=== PATIENT | male | born 1960 ===

== ENCOUNTER 2020-06-28 14:19 | Outpatient (REF) | payer BC, SELFPAY ==
--- NOTE | ~2020-06-28 | CT_ITS ---
EXAMINATION: CT CHEST, ABDOMEN AND PELVIS WITH CONTRAST. CLINICAL INFORMATION: Malignant neoplasm of bladder. COMPARISON: CT chest, abdomen and pelvis IV contrast 11/15/2018 TECHNIQUE: 5 mm thin axial and reformatted 3 mm thin sagittal coronal images of chest, abdomen and pelvis were obtained following IV 85 mL Omnipaque 350. DLP: 650 mGy-cm FINDINGS: CHEST: There are mild emphysematous changes of lungs without any acute pneumonic process. There are scattered pulmonary nodules right upper lobe and right lower lobe. The largest pulmonary nodule right upper lobe measures 5 mm on axial image 170/6, 3 mm nodule right upper lobe in the para midline region anteriorly on axial image 149/6, are stable. The heart size and the great vessels are normal caliber. There is no aortic dissection or aneurysm. There are coronary artery calcifications present. No pericardial effusion seen. The central trachea and bronchi are widely patent. The thyroid lobes are symmetrical and normal. A small hiatal hernia is noted. There is no pleural effusion, thickening or calcification. The axilla and the chest wall appears unremarkable. ABDOMEN AND PELVIS: The liver is diffusely attenuated without any focal lesion or intrahepatic ductal dilatation. There is a small punctate calculi in the gallbladder. No gallbladder wall thickening seen. Visualized spleen, pancreas and bilateral adrenal glands are unremarkable. There is a small 1.24 cm accessory splenule at the hilum. Both kidneys are normal size, shape and density. No radiopaque calculi or hydronephrosis seen. There is a small cortical defect along the posterior cortex midpole right kidney. There is a small 5 mm cyst midpole cortex left kidney. The abdominal aorta is atherosclerotic and calcified. No aneurysmal dilatation seen. No abnormal retroperitoneal lymph nodes or mass seen. There is scattered stool and gas seen throughout the colon without significant distention. The small bowel loops are normal caliber except for a segment of loop adjacent to the neobladder which appears prominent on axial image 79/3. Normal appendix Imaging through the pelvis reveals cystectomy with a neobladder reconstruction in the pelvis. There is no hydroureteronephrosis. There are no pelvic mass or abnormal pelvic lymph nodes. CT/CT abdomen pelvis w con IMPRESSION: 1. Emphysema with small pulmonary nodules, stable. 2. Small hiatal hernia. 3. Tiny gallstone, mild hypoattenuation of liver and bilateral renal cortical small cysts are stable. 4. Cystectomy changes with neobladder reconstruction without hydroureteronephrosis. 5. Mild prominence of small bowel loop adjacent to the neobladder, likely postsurgical. Recommend continued follow-up if patient has pain in this region.
== END 2020-06-28 14:20 | disposition home or self-care (01) ==
LOC: HO.CT 14:19
PROVIDERS: PCP Internal Medicine; Visit Provider Internal Medicine Hematology & Oncology
DX: C67.9 Malignant neoplasm of bladder, unspecified (principal)
CPT/HCPCS: 71260; 74177

== ENCOUNTER 2020-08-11 09:33 | Outpatient (REF) | payer BC, SELFPAY ==
[2020-08-11 10:37] LABS: MANUAL DIFF FLAG NO
[2020-08-11 10:59] LABS: Basophils Percent Auto 0.4 % (0-2); Eosinophils Absolute Auto 0.2 X10*3/uL (0.0-0.4); Eosinophils Percent Auto 2.5 % (0-4); Hematocrit 45.8 % (42-52); Hemoglobin 14.7 g/dl (14.0-18.0); Imm Gran Abs Auto 0.03 X10*3/uL (0.00-0.03); Imm Gran Pct Auto 0.4 % (0.0-0.4); Lymphocytes Absolute Auto 1.8 X10*3/uL (1.2-4.9); Lymphocytes Percent Auto 23.4 % (20-40); Mean Corpuscular HGB Conc 32.1 g/dl (31.0-36.0); Mean Corpuscular Hemoglobin 27.6 pg (27.0-33.0); Mean Corpuscular Volume 86.1 fL (80-98); Monocytes Absolute Auto 0.6 X10*3/uL (0.1-1.2); Monocytes Percent Auto 8.4 % (2-11); Neutrophils Absolute Auto 4.9 X10*3/uL (2.0-8.3); Neutrophils Percent Auto 64.9 % (45-73); Platelet Count 225 X10*3/uL (160-400); Red Blood Count 5.32 X10*6/uL (4.60-5.80); White Blood Count 7.5 X10*3/uL (4.8-10.8)
[2020-08-11 11:06] LABS: Alanine Aminotransferase 85 U/L (0-40); Albumin Level 4.8 g/dL (3.5-5.0); Alkaline Phosphatase 109 U/L (39-117); Anion Gap 14 (12-20); Aspartate Amino Transferase 56 U/L (5-37); Bilirubin Total 0.7 mg/dL (0.0-1.0); Blood Urea Nitrogen 13 mg/dL (9-16); Calcium 9.8 mg/dL (8.4-10.2); Carbon Dioxide 25 mmol/L (22-29); Chloride 106 mmol/L (96-108); Cholesterol 207 mg/dL; Estimated Glomerular Filt Rate > 60; Glucose Random 121 mg/dL (60-115); HDL Cholesterol 47 mg/dL; LDL Cholesterol Calculated 144 mg/dl; Potassium 4.6 mmol/L (3.3-5.1); Sodium 140 mmol/L (135-145); Total Protein 7.6 g/dL (6.5-8.0); Triglycerides 82 mg/dL
[2020-08-11 11:31] LABS: Free T4 (Free Thyroxine) 0.99 ng/dL (0.71-1.85); Prostate Specific Antigen Scr < 0.05 ng/mL (<0.05-4.0)
[2020-08-11 11:50] LABS: Folate 10.2 ng/mL (> or = 4.0); Vitamin B12 441 pg/mL (200-900)
== END 2020-08-11 09:34 | disposition home or self-care (01) ==
LOC: HO.LAB 09:33
PROVIDERS: PCP Internal Medicine; Visit Provider Internal Medicine
DX: Z12.5 Encounter for screening for malignant neoplasm of prostate (principal); E78.00 Pure hypercholesterolemia, unspecified; C67.9 Malignant neoplasm of bladder, unspecified; R73.02 Impaired glucose tolerance (oral)
CPT/HCPCS: 36415; 80053; 80061; 82607; 82746; 84153; 84439; 84443; 85025

== ENCOUNTER 2021-05-23 09:24 | Outpatient (REF) | payer BC, SELFPAY ==
--- NOTE | ~2021-05-23 | CT_ITS ---
EXAMINATION: CT ABDOMEN AND PELVIS WITH CONTRAST CLINICAL INFORMATION: Bladder cancer. COMPARISON: Previous CT most recent June 2020 TECHNIQUE: Multidetector volumetric images were obtained from the superior aspect of the liver through the pubic symphysis following administration 85 mL of Omnipaque 350 intravenous contrast. Sagittal and coronal reformatted images were obtained on the technologist's workstation. Oral contrast: Yes. This CT examination was performed using dose optimization techniques as appropriate, variously including the following: *Automated exposure control *Adjustment of mA and/or kV according to patient size (this includes techniques or standardized protocols for targeted exams where dose is matched to indication/reason for exam; i.e. extremities or head) *Use of iterative reconstruction technique DLP: 479 mGy-cm FINDINGS: LUNG BASES: The visualized lung bases are unremarkable. LIVER, GALLBLADDER, AND BILIARY TREE: The liver is low in attenuation suggestive of fatty infiltration. No focal liver lesion is seen. The gallbladder is contracted. There is a gallstone. There is no intrahepatic or extrahepatic biliary duct dilatation. PANCREAS: Unremarkable. SPLEEN: Unremarkable. ADRENAL GLANDS: Unremarkable. KIDNEYS AND URETERS: There is mild fullness of the right renal collecting system. There is mild fullness of the right ureter. There is air seen in the right ureter and a small amount of air in the right collecting system. This is a new finding from June 2020 exam. There is a small 5 mm low-attenuation lesion in the upper pole of the right kidney probably representing a cyst. There is a small amount of air in the left renal collecting system. There is no left hydronephrosis. There is fullness of the left ureter. No air in the left ureter is seen. There are small 5 mm low-attenuation lesions in the upper and lower pole of the left kidney probably representing small cysts. BLADDER: There is a neobladder. This is irregularly shaped. This contains fluid and air. Air is new from previous CT June 2020. There is also new high attenuation seen in the anterior neobladder, for example axial image 87-89 series 3. This appears unchanged. GASTROINTESTINAL TRACT: There is diverticulosis of the colon. There are postsurgical changes to the small bowel in the right lower quadrant. The small and large bowel is otherwise unremarkable. The appendix is unremarkable. The stomach is unremarkable. ABDOMINAL WALL: There is a small umbilical hernia containing fat. LYMPH NODES: Normal. VASCULAR: There is evidence of atherosclerotic disease. PELVIC VISCERA: The prostate gland appears to have been removed. OSSEOUS STRUCTURES: Unremarkable. CT/CT abdomen pelvis w con IMPRESSION: There is new air seen in the neobladder and right ureter and a small amount of air in both collecting systems. This may be related to recent instrumentation. Clinical correlation is recommended to exclude infection and fistula. Small high attenuation in the anterior neobladder that appears unchanged from previous June 2020 exam. Mild fullness of the right renal collecting system and ureter. Mild fullness of the left ureter. Stable small low-attenuation bilateral renal lesions probably representing cysts. Fatty liver. Mild diverticulosis of the colon. Fleischner guidelines were followed.
--- NOTE | ~2021-05-23 | CT_ITS ---
EXAMINATION: CT CHEST WITH CONTRAST CLINICAL INFORMATION: Bladder cancer. COMPARISON: Previous chest CT most recent June 2020. TECHNIQUE: Multidetector volumetric CT imaging of the chest was obtained after the administration of 85 mL of Omnipaque 350 intravenous contrast without immediate adverse reactions. Axial MIP volume rendering provided. Sagittal and coronal reformatted images were obtained. This CT examination was performed using dose optimization techniques as appropriate, variously including the following: *Automated exposure control *Adjustment of mA and/or kV according to patient size (this includes techniques or standardized protocols for targeted exams where dose is matched to indication/reason for exam; i.e. extremities or head) *Use of iterative reconstruction technique DLP: 150 mGy-cm FINDINGS: LUNGS: The small bilateral pulmonary nodules are stable. Largest pulmonary nodule measures 3 x 5 mm in the right upper lobe axial image 166 series 7. No new pulmonary nodules are seen. There are mild emphysematous changes. MEDIASTINUM: The heart does not appear enlarged. There is mild coronary artery and aortic valve calcification. There is no pericardial effusion. There are no enlarged hilar or mediastinal lymph nodes. The thoracic aorta is normal in caliber. PLEURA: There is no pleural effusion. No pleural mass or thickening. AXILLA: No lymphadenopathy. UPPER ABDOMEN: Fatty liver. Gallstone. OSSEOUS STRUCTURES: There are degenerative changes of the spine. CT/CT chest w con IMPRESSION: Stable small pulmonary nodules. Emphysema. Fleischner guidelines were followed.
[2021-05-23] MEDS: iohexoL 350 MG/ML 100 ML INFUS..BTL IV (10:23)
== END 2021-05-23 09:25 | disposition home or self-care (01) ==
LOC: HO.CT 09:24
PROVIDERS: PCP Internal Medicine; Visit Provider Internal Medicine Hematology & Oncology
DX: C67.9 Malignant neoplasm of bladder, unspecified (principal)
CPT/HCPCS: 71260; 74177; Q9967

== ENCOUNTER → 2021-06-30 13:36 | Outpatient (REF) | payer BC, SELFPAY ==
--- NOTE | 2021-06-30 13:41 | CA_ITS ---
Transthoracic Echocardiogram Patient (Last, First, Middle): Josh Herron J Gender: Male Date of : 1960 Age: 61 Procedure Date: 06/30/2021 Procedure Type: Transthoracic Echocardiogram Location: OP Height: 177.8 cm Weight: 95.26 kg BSA: 2.13 m2 Heart Rate: bpm BP: 126 / 84 mmHg Director Of Analytics: JESSICA Referring MD: Seamus Gibbons MD Special Education Teachers: Leeroy Yost MD Symptoms: I35.0 - Nonrheumatic aortic (valve) stenosis Study Quality: Fair ECG Rhythm: Sinus Conclusions: - 1. Normal LV systolic function with mild LVH with grade 1 diastolic dysfunction 2. Mild aortic stenosis 3. Normal RV systolic pressure 4. No pericardial effusion Findings Left Ventricle Normal left ventricular size and systolic function. There is mildly increased left ventricular wall thickness. The visually estimated ejection fraction is between 60-65%. Spectral Doppler is indicative of an impaired relaxation filling pattern. E/E prime ratio is <8, consistent with normal filling pressures. Evidence suggests grade I (mild) diastolic dysfunction. Right Ventricle Normal right ventricular cavity size and systolic function. Atria The left atrium is likely dilated. Interatrial shunt cannot be excluded. The right atrium is normal in size. Aortic Valve There is mild calcification of the aortic valve. There is mild thickening of the aortic valve. There is mild aortic valve stenosis. The mean gradient is 13 mmHg. The aortic valve area is 1.86 cm2. There is no aortic valve regurgitation. Mitral Valve There is mild anterior and posterior mitral leaflet thickening. There is trace mitral valve regurgitation. There is no mitral valve stenosis. Pulmonic Valve The pulmonic valve was not well visualized. Tricuspid Valve Likely normal tricuspid valve structure and function. There is trace tricuspid valve regurgitation. The right ventricular systolic pressure is normal. The right ventricular systolic pressure is 17 mmHg. Normal right atrial pressure. There is no evidence of pulmonary hypertension. Great Vessels All visible segments of the aorta are normal in size. The pulmonary artery was not well visualized. Venous The inferior vena cava is normal in size and collapses greater than 50% with inspiration. Pericardium/Pleural There is no evidence of pericardial effusion. Prior Study Comparison No significant change compared to prior study dated: 02/12/2019. Measurements 2D Linear Measurements IVSd: 1.18 0.6-0.9/0.6-1.0 cm LVIDd: 4.51 3.9-5.3/4.2-5.9 cm LVIDd Index: 2.12 2.4-3.2/2.2-3.1 cm/m2 LVIDs: 2.82 2.0-3.6 cm LVPWd: 1.24 0.7-1.1 cm LA Diam: 3.90 2.7-3.8/3.0-4.0 cm LAIDs Index: 1.83 1.5-2.3 cm/m2 LV Mass: 250.72 67-162/88-224 g LV Mass Index: 117.71 43-95/49-115 g/m2 LVOT Diam: 2.20 3.0+(-)1.3 cm 2D Systolic Function EF 4C: 63.40 >55% EF 2C: 66.40 >55% EF BiP: 64.90 >55% Mitral Valve MV Pk E: 0.62 MV PK A: 1.06 MV Decel Time: 200.00 E/A: 0.60 E'Lateral: 12.60 E'Medial: 10.10 E/E' Med: 6.10 E/E' Lat: 4.90 PHT: 57.00 MVA PHT: 3.86 Decel [place]: 3.35 Aortic Valve AoV Pk Chip: 2.41 AoV Mn Chip: 1.73 AoV VTI: 0.36 AoV Pk Grad: 23.00 Aov Mn Grad: 13.00 GRAYSON Cont.VTI: 1.86 LVOT LVOT Pk Chip: 1.11 LVOT Mn Chip: 0.77 LVOT VTI: 0.18 LVOT Pk Grad: 5.00 LVOT Mn Grad: 3.00 LVOT Diam: 2.20 LVOT Area: 3.80 Diastolic Function MV Pk E: 0.62 MV Pk A: 1.06 E/A: 0.60 E'Medial: 10.10 E/E' Med: 6.10 E' Laterial: 12.60 E/E' Lat: 4.90 Right Ventricle TAPSE (mm): 21.40 TVS' Chip: 16.50 Tricuspid Valve TR Pk Chip: 1.87 TR Pk Grad: 14.00 RA Press: 3.00 RVSP: 17.00 Great Vessels Aorta Sinus of Valsalva: 3.82 2.0-3.[address] [place]: 3.07 1.7-3.4 cm Ao Asc: 3.80 2.1-3.4 cm Ao Arch: 3.00 Updated in Other Vendor System with Status of Final Leeroy Yost MD electronically signed on 06/30/2021 4:55:51 PM with status of Final
== END ==
LOC: HO.CARD 13:36
PROVIDERS: PCP Internal Medicine; Visit Provider Internal Medicine
DX: I35.0 Nonrheumatic aortic (valve) stenosis (principal)
CPT/HCPCS: 93306

== ENCOUNTER 2021-07-07 09:34 | Observation (INO) | payer BC, SELFPAY ==
--- NOTE | ~2021-07-07 | CT_ITS ---
EXAMINATION: CT ANGIOGRAM NECK WITH CONTRAST CT ANGIOGRAM BRAIN WITH CONTRAST CLINICAL INFORMATION: Sudden onset dizziness. COMPARISON: None. TECHNIQUE: Test bolus sequences followed by intravenous administration 70 mL of Omnipaque 350. Helical imaging was performed in the axial plane from the thoracic inlet to the skull vertex. Delayed postcontrast imaging of the head was also performed. The data was processed at the surgical scrub technologist workstation for generation of MIP sequences. Angled MIPs and volume rendered reformatted images were also generated at an offline 3D workstation. Stenoses are assessed in accordance with NASCET criteria unless otherwise indicated. This CT examination was performed using dose optimization techniques as appropriate, variously including the following: *Automated exposure control *Adjustment of mA and/or kV according to patient size (this includes techniques or standardized protocols for targeted exams where dose is matched to indication/reason for exam; i.e. extremities or head) *Use of iterative reconstruction technique DLP: 2511 mGy-cm FINDINGS: Head CT: Moderate patchy hypoattenuation is seen throughout the cerebral white matter compatible with chronic microangiopathy. No intracranial hemorrhage, extra-axial collection, or territorial infarction is seen. The ventricles are normal in size without hydrocephalus. The extracranial structures are unremarkable. The dural venous sinuses are normally opacified. Neck CTA: The aortic arch and great vessel origins are patent. The common carotid arteries are patent. Mild atheromatous changes are seen at the carotid bifurcations without significant stenosis. The cervical internal carotid arteries are widely patent. Both vertebral arteries are patent. Head CTA: No proximal vessel occlusion is seen. The anterior and posterior circulations are patent. No significant stenosis is seen. Non-vascular findings: Significant emphysema is seen within the upper lungs. The cervical soft tissues are within normal limits. Degenerative changes are seen within the spine. Multilevel neural foraminal stenosis is demonstrated and is high-grade across multiple levels. CT/CT head/brain wo con IMPRESSION: CT head: No intracranial hemorrhage or large acute infarction. Moderate to severe hypoattenuation throughout the cerebral white matter presumably on the basis of chronic microangiopathy but could be further evaluated with MRI. CTA neck: No hemodynamically significant stenosis in the major arteries of the neck. CTA head: No large vessel occlusion or significant stenosis within the intracranial circulation. Additional findings: Significant emphysema noted in the lungs. This critical result was discussed with Dr. Brooks on 07/07/2021 11:45 AM, and it was ascertained that the content and urgency of the report was understood at the time of direct communication.
--- NOTE | ~2021-07-07 | MR_ITS ---
EXAMINATION: MR BRAIN WITHOUT CONTRAST CLINICAL INFORMATION: Rule out posterior stroke. COMPARISON: Head CTA 07/07/2021. TECHNIQUE: Multiplanar, multisequence imaging of the brain was performed without intravenous contrast. FINDINGS: There is no acute infarction, hemorrhage, mass, or extra-axial fluid collection. The ventricles and sulci are commensurate. Moderate to severe patchy and partly confluent T2/FLAIR hyperintensity seen throughout the cerebral white matter. No signal abnormalities seen within the corpus callosum or posterior fossa structures The major arterial flow voids are preserved at the skull base. The orbital contents appear normal. The extracranial structures are within normal limits. MR/MR head/brain wo con IMPRESSION: No acute intracranial abnormality identified. Specifically no evidence of infarction, hemorrhage, or mass. Extensive T2/FLAIR hyperintensity is seen throughout the cerebral white matter which is nonspecific but may reflect sequela of significant chronic microangiopathy. Demyelinating processes is an additional consideration but felt less likely.
--- NOTE | ~2021-07-07 | CT_ITS ---
EXAMINATION: CT ANGIOGRAM NECK WITH CONTRAST CT ANGIOGRAM BRAIN WITH CONTRAST CLINICAL INFORMATION: Sudden onset dizziness. COMPARISON: None. TECHNIQUE: Test bolus sequences followed by intravenous administration 70 mL of Omnipaque 350. Helical imaging was performed in the axial plane from the thoracic inlet to the skull vertex. Delayed postcontrast imaging of the head was also performed. The data was processed at the genetic technologist workstation for generation of MIP sequences. Angled MIPs and volume rendered reformatted images were also generated at an offline 3D workstation. Stenoses are assessed in accordance with NASCET criteria unless otherwise indicated. This CT examination was performed using dose optimization techniques as appropriate, variously including the following: *Automated exposure control *Adjustment of mA and/or kV according to patient size (this includes techniques or standardized protocols for targeted exams where dose is matched to indication/reason for exam; i.e. extremities or head) *Use of iterative reconstruction technique DLP: 2511 mGy-cm FINDINGS: Head CT: Moderate patchy hypoattenuation is seen throughout the cerebral white matter compatible with chronic microangiopathy. No intracranial hemorrhage, extra-axial collection, or territorial infarction is seen. The ventricles are normal in size without hydrocephalus. The extracranial structures are unremarkable. The dural venous sinuses are normally opacified. Neck CTA: The aortic arch and great vessel origins are patent. The common carotid arteries are patent. Mild atheromatous changes are seen at the carotid bifurcations without significant stenosis. The cervical internal carotid arteries are widely patent. Both vertebral arteries are patent. Head CTA: No proximal vessel occlusion is seen. The anterior and posterior circulations are patent. No significant stenosis is seen. Non-vascular findings: Significant emphysema is seen within the upper lungs. The cervical soft tissues are within normal limits. Degenerative changes are seen within the spine. Multilevel neural foraminal stenosis is demonstrated and is high-grade across multiple levels. CT/CT angio head neck IMPRESSION: CT head: No intracranial hemorrhage or large acute infarction. Moderate to severe hypoattenuation throughout the cerebral white matter presumably on the basis of chronic microangiopathy but could be further evaluated with MRI. CTA neck: No hemodynamically significant stenosis in the major arteries of the neck. CTA head: No large vessel occlusion or significant stenosis within the intracranial circulation. Additional findings: Significant emphysema noted in the lungs. This critical result was discussed with Dr. Brooks on 07/07/2021 11:45 AM, and it was ascertained that the content and urgency of the report was understood at the time of direct communication.
--- NOTE | ~2021-07-07 | XR_ITS ---
EXAMINATION: XR CHEST CLINICAL INFORMATION: CO2 poisoning. Low suspicion of pulmonary edema. COMPARISON: CT chest 05/23/2021 TECHNIQUE: Frontal view of the chest was obtained. FINDINGS: The lungs are hypoexpanded and clear of acute pneumonic process. The heart size is borderline enlarged. Pulmonary vascularity is normal. No gross bony abnormality seen. XR/XR chest 1V IMPRESSION: Hypoexpanded lungs without acute process.
[2021-07-07 09:39] VITALS: BP 170/101; PULSE 73; RESP 19; TEMP 36.6; O2SAT 100; BMI 30.9
--- NOTE | 2021-07-07 09:43 | ECG_ITS ---
Test Reason : Dizziness Blood Pressure : / mmHG Vent. Rate : 071 BPM Atrial Rate : 071 BPM P-R Int : 182 ms QRS Dur : 132 ms QT Int : 434 ms P-R-T Axes : 030 -38 -12 degrees QTc Int : 471 ms Normal sinus rhythm Possible Left atrial enlargement Left axis deviation Right bundle branch block Abnormal ECG No previous ECGs available Referred By: Belinda Brooks Electronically Signed By:MAGDALENA ROGEL
--- NOTE | 2021-07-07 09:45 | ED.GENADULT ---
HPI - General Adult General Chief complaint: Dizziness Stated complaint: ? CARBON MONOXIDE POISONING FROM A RUNNING CAR Time Seen by Provider: 07/07/21 09:39 Source: patient and EMS Mode of arrival: EMS Limitations: no limitations History of Present Illness HPI narrative: Patient comes to the emergency room complaining of dizziness and vomiting. Earlier today, patient was sitting in his parked car with the engine running for 1-1/2 hours. Patient states that he was waiting for his brother, denies SI or HI. When patient got home, he started feeling dizzy (room spinning) and having nausea. Patient denies shortness of breath, no headache, no chest pain Related Data Previous Rx's Medication Instructions Recorded cholecalciferol (vitamin D3) 25 25 mcg PO DAILY 90 Days #90 cap 08/13/20 mcg (1,000 unit) capsule atorvastatin 20 mg tablet 20 mg PO DAILY #90 tab 12/07/20 omeprazole 20 mg capsule,delayed 20 mg PO BID 90 Days #180 cap 05/31/21 release Allergies Allergy/AdvReac Type Severity Reaction Status Date / Time No Known Allergies Allergy Verified 03/07/21 11:22 [No Known Allergies*] Review of Systems Review of Systems: Constitutional : No Weight loss, No Fever, No Chills, No Night Sweats, No Fatigue, No Malaise ENT/Mouth : No Hearing loss, No Ear Pain, No Nasal Congestion, No Sinus Pain, No Hoarseness, No sore throat, No Rhinorrhea, No Swallowing Difficulty Eyes: No Eye Pain, No Swelling, No Redness, No Foreign Body, No Discharge, No Vision Changes Cardiovascular : No Chest Pain, No SOB, No Dyspnea on Exertion, No Orthopnea, No Edema, No Palpitations Respiratory : No Cough, No Sputum, No Wheezing, No Smoke Exposure, No Dyspnea Gastrointestinal : Complaining of sudden onset of nausea and vomiting No Diarrhea, No Constipation, No abdominal Pain, No Hematochezia, No Melena Genitourinary : no irregular bleeding, No Dysuria, No Urinary Frequency, No Hematuria, No Urinary Incontinence, No Urgency, No Flank Pain, No Urinary Flow Changes, No Hesitancy Musculoskeletal : No joint pain, No Myalgias, No Joint Swelling Skin : No Skin Lesions, No rash Neuro : No Weakness, No Numbness, No Paresthesias, No Loss of Consciousness, N complaining of Dizziness, No Headache Psych : No Anxiety/Panic, No Depression, No SI/HI/AH/VH, No Social Issues, Heme/Lymph: No Bruising, No Bleeding,No Lymphadenopathy Endocrine : No Polyuria, No Polydipsia, No Temperature Intolerance [facility] Past Medical History Medical History (Updated 07/07/21 @ 14:10 by Belinda Brooks MD) Bladder cancer GERD (gastroesophageal reflux disease) Hyperlipidemia Impaired glucose tolerance PHIPPS (nonalcoholic steatohepatitis) Obesity (BMI 30-39.9) Pulmonary nodule Surgical History H/O total cystectomy History of cystoscopy History of shoulder surgery Family History Family History (Updated 02/06/20 @ 12:34 by Ary Koehler [facility]) Father Diabetes Lung cancer CAD (coronary artery disease) Mother Lung cancer Social History Social History (Updated 02/09/20 @ 18:09 by Seamus Gibbons MD) Housing: House Alcohol intake: never Patient Tobacco Use Status: Former Tobacco user Tobacco use type: Cigarette Years Smoked: 30 years ago(02/2020) e-Cigarette/Vaping Use: Never Used Second Hand Smoke Exposure: No Advance Directives: No Current occupational status: retired Physical Exam ED Vital Signs: Vital Signs - 24 hr 07/07/21 09:39 07/07/21 10:00 07/07/21 10:54 Temperature 98 F Pulse Rate 73 76 78 Respiratory Rate 19 16 19 Blood Pressure 170/101 H Pulse Oximetry 100 100 91 L 07/07/21 13:53 07/07/21 13:56 Temperature Pulse Rate 88 Respiratory Rate 13 Blood Pressure 155/94 H Pulse Oximetry 92 91 L BMI result Body Mass Index 30.9 Course Course Course Narrative: When patient arrived, we started 15 L on a non-rebreather. When me received the carboxyhemoglobin results which were negative, we turned off the oxygen. Patient overall feeling better. However, patient states that every time he moves his head, the dizziness gets worse. Patient able to clarify that the dizziness means the room spinning. Patient was given meclizine and oral Valium Patient states that he feels much better after the meclizine and the Valium. We attempted several times to stand up the patient and walk with him. Patient became very dizzy, patient became very nauseous, pale diaphoretic. Patient recuperated after we sat him down for a few minutes. Patient likely has BPPV, I discussed the patient with Dr. Molina, since patient's symptoms are intermittent, worse with movement, unlikely to be stroke, but we will go ahead and order an MRI. Head CT and CTA do not show any acute pathology Of note, patient has not been diagnosed with COPD. However, on CT scan there was significant emphysema noted in the lungs. Patient will likely need pulmonary functions test likely in an outpatient setting Medical Decision Making Lab Data Result diagrams: 07/07/21 09:53 07/07/21 09:53 Labs: Lab Results 07/07/21 07/07/21 07/07/21 Range/Units 09:53 09:53 09:53 WBC 7.5 (4.8-10.8) X10*3/uL RBC 5.11 (4.60-5.80) X10*6/uL Hgb 14.0 (14.0-18.0) g/dl Hct 43.5 (42.0-52.0) % MCV 85.1 (80.0-98.0) fL MCH 27.4 (27.0-33.0) pg MCHC 32.2 (31.0-36.0) g/dl RDW 11.9 (11.0-16.0) % Plt Count 175 (160-400) X10*3/uL MPV 10.4 (9.4-12.4) fL Immature Gran % (Auto) 0.5 H (0.0-0.4) % Neut % (Auto) 66.3 (45-73) % Lymph % (Auto) 21.9 (20-40) % Centre % (Auto) 8.6 (2-11) % Eos % (Auto) 2.3 (0-4) % Baso % (Auto) 0.4 (0-2) % Lymph # (Auto) 1.7 (1.2-4.9) X10*3/uL [place] # (Auto) 0.7 (0.1-1.2) X10*3/uL Eos # (Auto) 0.2 (0.0-0.4) X10*3/uL Baso # (Auto) 0.0 (0.0-0.2) X10*3/uL Abs Immat Gran (auto) 0.04 H (0.00-0.03) X10*3/uL Absolute Neuts (auto) 5.0 (2.0-8.3) x10*3/uL Absolute Nucleated RBC 0.000 (0.0-0.012) X10*3/uL Nucleated RBC % (auto) 0.0 (0.0-0.2) /100WBC D-Dimer High Sensitivty NG/ML Carboxyhemoglobin % % Sodium 139 (135-145) mmol/L Potassium 4.5 (3.3-5.1) mmol/L Chloride 107 (96-108) mmol/L Carbon Dioxide 21 L (22-29) mmol/L Anion Gap 16 (12-20) BUN 16 (9-16) mg/dL Creatinine 0.86 (0.5-1.4) mg/dL Estim Creat Clear Calc 103.2 Estimated GFR > 60 Random Glucose 127 H (60-115) mg/dL Lactic Acid (0.5-2.0) mmol/L Calcium 9.6 (8.4-10.2) mg/dL Magnesium 2.1 (1.6-2.6) mg/dL Total Bilirubin 0.4 (0.0-1.0) mg/dL Direct Bilirubin < 0.2 (0.0-0.5) mg/dL AST 36 (5-37) U/L ALT 52 H (0-40) U/L Alkaline Phosphatase 97 (39-117) U/L Troponin I High Sens 6.9 (<3.5-35.0) ng/L Total Protein 7.6 (6.5-8.0) g/dL Albumin 4.6 (3.5-5.0) g/dL Urine Color Urine Appearance Urine pH (5.0-8.0) Ur Specific [place] (1.005-1.025) Urine Protein (NEG-TRACE) MG/DL Urine Glucose (UA) (NEG) MG/DL Urine Ketones (NEG) MG/DL Urine Blood (NEG) Urine Nitrite (NEG) Ur Leukocyte Esterase (NEG) Urine RBC (0) /HPF Urine WBC (0-4) /HPF Ur Squamous Epith Cells /LPF Ur Renal Epithelial Cell /LPF Urine Bacteria /LPF Urine Opiates Screen (Not Detect) Urine Fentanyl Screen (Not Detect) Ur Barbiturates Screen (Not Detect) Ur Phencyclidine Scrn (Not Detect) Ur Amphetamines Screen (Not Detect) U Benzodiazepines Scrn (Not Detect) Urine Cocaine Screen (Not Detect) U Marijuana (THC) Screen (Not Detect) Ethyl Alcohol mg/dL 07/07/21 07/07/21 07/07/21 Range/Units 09:53 09:56 12:44 WBC (4.8-10.8) X10*3/uL RBC (4.60-5.80) X10*6/uL Hgb (14.0-18.0) g/dl Hct (42.0-52.0) % MCV (80.0-98.0) fL MCH (27.0-33.0) pg MCHC (31.0-36.0) g/dl RDW (11.0-16.0) % Plt Count (160-400) X10*3/uL MPV (9.4-12.4) fL Immature Gran % (Auto) (0.0-0.4) % Neut % (Auto) (45-73) % Lymph % (Auto) (20-40) % Centre % (Auto) (2-11) % Eos % (Auto) (0-4) % Baso % (Auto) (0-2) % Lymph # (Auto) (1.2-4.9) X10*3/uL [place] # (Auto) (0.1-1.2) X10*3/uL Eos # (Auto) (0.0-0.4) X10*3/uL Baso # (Auto) (0.0-0.2) X10*3/uL Abs Immat Gran (auto) (0.00-0.03) X10*3/uL Absolute Neuts (auto) (2.0-8.3) x10*3/uL Absolute Nucleated RBC (0.0-0.012) X10*3/uL Nucleated RBC % (auto) (0.0-0.2) /100WBC D-Dimer High Sensitivty NG/ML Carboxyhemoglobin % 0.4 % Sodium (135-145) mmol/L Potassium (3.3-5.1) mmol/L Chloride (96-108) mmol/L Carbon Dioxide (22-29) mmol/L Anion Gap (12-20) BUN (9-16) mg/dL Creatinine (0.5-1.4) mg/dL Estim Creat Clear Calc Estimated GFR Random Glucose (60-115) mg/dL Lactic Acid 1.4 (0.5-2.0) mmol/L Calcium (8.4-10.2) mg/dL Magnesium (1.6-2.6) mg/dL Total Bilirubin (0.0-1.0) mg/dL Direct Bilirubin (0.0-0.5) mg/dL AST (5-37) U/L ALT (0-40) U/L Alkaline Phosphatase (39-117) U/L Troponin I High Sens (<3.5-35.0) ng/L Total Protein (6.5-8.0) g/dL Albumin (3.5-5.0) g/dL Urine Color Urine Appearance Urine pH (5.0-8.0) Ur Specific [place] (1.005-1.025) Urine Protein (NEG-TRACE) MG/DL Urine Glucose (UA) (NEG) MG/DL Urine Ketones (NEG) MG/DL Urine Blood (NEG) Urine Nitrite (NEG) Ur Leukocyte Esterase (NEG) Urine RBC (0) /HPF Urine WBC (0-4) /HPF Ur Squamous Epith Cells /LPF Ur Renal Epithelial Cell /LPF Urine Bacteria /LPF Urine Opiates Screen (Not Detect) Urine Fentanyl Screen (Not Detect) Ur Barbiturates Screen (Not Detect) Ur Phencyclidine Scrn (Not Detect) Ur Amphetamines Screen (Not Detect) U Benzodiazepines Scrn (Not Detect) Urine Cocaine Screen (Not Detect) U Marijuana (THC) Screen (Not Detect) Ethyl Alcohol < 10 mg/dL 07/07/21 07/07/21 07/07/21 Range/Units 12:44 12:44 12:44 WBC (4.8-10.8) X10*3/uL RBC (4.60-5.80) X10*6/uL Hgb (14.0-18.0) g/dl Hct (42.0-52.0) % MCV (80.0-98.0) fL MCH (27.0-33.0) pg MCHC (31.0-36.0) g/dl RDW (11.0-16.0) % Plt Count (160-400) X10*3/uL MPV (9.4-12.4) fL Immature Gran % (Auto) (0.0-0.4) % Neut % (Auto) (45-73) % Lymph % (Auto) (20-40) % Centre % (Auto) (2-11) % Eos % (Auto) (0-4) % Baso % (Auto) (0-2) % Lymph # (Auto) (1.2-4.9) X10*3/uL [place] # (Auto) (0.1-1.2) X10*3/uL Eos # (Auto) (0.0-0.4) X10*3/uL Baso # (Auto) (0.0-0.2) X10*3/uL Abs Immat Gran (auto) (0.00-0.03) X10*3/uL Absolute Neuts (auto) (2.0-8.3) x10*3/uL Absolute Nucleated RBC (0.0-0.012) X10*3/uL Nucleated RBC % (auto) (0.0-0.2) /100WBC D-Dimer High Sensitivty 151 NG/ML Carboxyhemoglobin % % Sodium (135-145) mmol/L Potassium (3.3-5.1) mmol/L Chloride (96-108) mmol/L Carbon Dioxide (22-29) mmol/L Anion Gap (12-20) BUN (9-16) mg/dL Creatinine (0.5-1.4) mg/dL Estim Creat Clear Calc Estimated GFR Random Glucose (60-115) mg/dL Lactic Acid (0.5-2.0) mmol/L Calcium (8.4-10.2) mg/dL Magnesium (1.6-2.6) mg/dL Total Bilirubin (0.0-1.0) mg/dL Direct Bilirubin (0.0-0.5) mg/dL AST (5-37) U/L ALT (0-40) U/L Alkaline Phosphatase (39-117) U/L Troponin I High Sens (<3.5-35.0) ng/L Total Protein (6.5-8.0) g/dL Albumin (3.5-5.0) g/dL Urine Color YELLOW Urine Appearance HAZY Urine pH 7.0 (5.0-8.0) Ur Specific [place] <= 1.005 (1.005-1.025) Urine Protein NEG (NEG-TRACE) MG/DL Urine Glucose (UA) NEG (NEG) MG/DL Urine Ketones NEG (NEG) MG/DL Urine Blood TRACE (NEG) Urine Nitrite NEG (NEG) Ur Leukocyte Esterase NEG (NEG) Urine RBC 0 (0) /HPF Urine WBC 5-9 H (0-4) /HPF Ur Squamous Epith Cells NONE /LPF Ur Renal Epithelial Cell 3+ /LPF Urine Bacteria NONE /LPF Urine Opiates Screen Not Detected (Not Detect) Urine Fentanyl Screen Not Detected (Not Detect) Ur Barbiturates Screen Not Detected (Not Detect) Ur Phencyclidine Scrn Not Detected (Not Detect) Ur Amphetamines Screen Not Detected (Not Detect) U Benzodiazepines Scrn Not Detected (Not Detect) Urine Cocaine Screen Not Detected (Not Detect) U Marijuana (THC) Screen Not Detected (Not Detect) Ethyl Alcohol mg/dL Imaging Data Head CT and CTA of head and neck: Radiologist's impression: FINDINGS: Head CT: Moderate patchy hypoattenuation is seen throughout the cerebral white matter compatible with chronic microangiopathy. No intracranial hemorrhage, extra-axial collection, or territorial infarction is seen. The ventricles are normal in size without hydrocephalus. The extracranial structures are unremarkable. The dural venous sinuses are normally opacified. Neck CTA: The aortic arch and great vessel origins are patent. The common carotid arteries are patent. Mild atheromatous changes are seen at the carotid bifurcations without significant stenosis. The cervical internal carotid arteries are widely patent. Both vertebral arteries are patent. Head CTA: No proximal vessel occlusion is seen. The anterior and posterior circulations are patent. No significant stenosis is seen. Non-vascular findings: Significant emphysema is seen within the upper lungs. The cervical soft tissues are within normal limits. Degenerative changes are seen within the spine. Multilevel neural foraminal stenosis is demonstrated and is high-grade across multiple levels. CT/CT angio head neck IMPRESSION: CT head: No intracranial hemorrhage or large acute infarction. Moderate to severe hypoattenuation throughout the cerebral white matter presumably on the basis of chronic microangiopathy but could be further evaluated with MRI. ? CTA neck: No hemodynamically significant stenosis in the major arteries of the neck. ? CTA head: No large vessel occlusion or significant stenosis within the intracranial circulation. ? Additional findings: Significant emphysema noted in the lungs. Discharge Plan Discharge Clinical Impression: Benign paroxysmal positional vertigo Patient Disposition: Admitted As Inpatient Prescriptions: No Action cholecalciferol (vitamin D3) 25 mcg (1,000 unit) capsule 25 mcg PO DAILY 90 Days Qty: 90 3RF atorvastatin 20 mg tablet 20 mg PO DAILY Qty: 90 2RF omeprazole 20 mg capsule,delayed release(DR/EC) 20 mg PO BID 90 Days Qty: 180 2RF
[2021-07-07] MEDS: 0.9 % Sodium Chloride 1,000 ML 999 ML IVCONT (09:57)
[2021-07-07] MEDS: Meclizine HCl 25 MG TABLET 50 MG PO (09:58)
[2021-07-07] MEDS: ondansetron HCL 4 MG/2 ML VIAL IVPUSH (09:58)
[2021-07-07 10:00] VITALS: PULSE 76; RESP 16; O2SAT 100
[2021-07-07 10:01] LABS: MANUAL DIFF FLAG NO
[2021-07-07 10:04] LABS: Carbon Monoxide POC 0.4 %
[2021-07-07 10:04] LABS: Basophils Percent Auto 0.4 % (0-2); Eosinophils Absolute Auto 0.2 X10*3/uL (0.0-0.4); Eosinophils Percent Auto 2.3 % (0-4); Hematocrit 43.5 % (42.0-52.0); Imm Gran Abs Auto 0.04 X10*3/uL (0.00-0.03); Imm Gran Pct Auto 0.5 % (0.0-0.4); Lymphocytes Absolute Auto 1.7 X10*3/uL (1.2-4.9); Lymphocytes Percent Auto 21.9 % (20-40); Mean Corpuscular HGB Conc 32.2 g/dl (31.0-36.0); Mean Corpuscular Hemoglobin 27.4 pg (27.0-33.0); Mean Corpuscular Volume 85.1 fL (80.0-98.0); Mean Platelet Volume 10.4 fL (9.4-12.4); Monocytes Absolute Auto 0.7 X10*3/uL (0.1-1.2); Monocytes Percent Auto 8.6 % (2-11); Neutrophils Percent Auto 66.3 % (45-73); Platelet Count 175 X10*3/uL (160-400); Red Blood Count 5.11 X10*6/uL (4.60-5.80); Red Cell Distribution Width 11.9 % (11.0-16.0); White Blood Count 7.5 X10*3/uL (4.8-10.8)
[2021-07-07 10:09] LABS: Carbon Monoxide Refer to POC result
[2021-07-07 10:24] LABS: Ethanol < 10 mg/dL
[2021-07-07 10:32] LABS: Troponin-I High Sensitivity 6.9 ng/L (<3.5-35.0)
[2021-07-07 10:34] LABS: Alanine Aminotransferase 52 U/L (0-40); Albumin Level 4.6 g/dL (3.5-5.0); Alkaline Phosphatase 97 U/L (39-117); Anion Gap 16 (12-20); Aspartate Amino Transferase 36 U/L (5-37); Bilirubin Direct < 0.2 mg/dL (0.0-0.5); Bilirubin Total 0.4 mg/dL (0.0-1.0); Blood Urea Nitrogen 16 mg/dL (9-16); Calcium 9.6 mg/dL (8.4-10.2); Carbon Dioxide 21 mmol/L (22-29); Chloride 107 mmol/L (96-108); Creatinine Clr Calc Pharmacy 103.2; Estimated Glomerular Filt Rate > 60; Glucose Random 127 mg/dL (60-115); Magnesium 2.1 mg/dL (1.6-2.6); Potassium 4.5 mmol/L (3.3-5.1); Sodium 139 mmol/L (135-145); Total Protein 7.6 g/dL (6.5-8.0)
[2021-07-07 10:54] VITALS: PULSE 78; RESP 19; O2SAT 91
[2021-07-07] MEDS: diazePAM 5 MG TABLET PO (11:00)
[2021-07-07] MEDS: iohexoL 350 MG/ML 100 ML INFUS..BTL IV (11:26)
[2021-07-07 12:56] LABS: Appearance Urine HAZY; Color Urine YELLOW; Glucose Urine UA NEG (NEG); Leukocyte Esterase Urine NEG (NEG); Nitrite Urine NEG (NEG); Specific Gravity - Urine <= 1.005 (1.005-1.025); UACC Culture Trigger NO; Urine Blood TRACE (NEG); Urine Ketones NEG (NEG); Urine Protein NEG (NEG-TRACE)
[2021-07-07 13:09] LABS: Lactic Acid 1.4 mmol/L (0.5-2.0)
[2021-07-07 13:10] LABS: D Dimer High Sensitivity 151 NG/ML
[2021-07-07 13:11] LABS: Amphetamine Screen Urine Not Detected (Not Detect); Barbiturates, Urine Not Detected (Not Detect); Benzodiazepines Screen Urine Not Detected (Not Detect); Cannabinoid Screen Urine Not Detected (Not Detect); Cocaine Screen Urine Not Detected (Not Detect); Fentanyl, urine Not Detected (Not Detect); Opiate Screen Urine Not Detected (Not Detect); Phencyclidine Screen Urine Not Detected (Not Detect)
[2021-07-07 13:25] LABS: RBC Urine 0 /HPF (0); Renal Epithelial Cells Urine 3+ /LPF; UACC CULT YES
[2021-07-07 13:53] VITALS: BP 155/94; PULSE 88; RESP 13; O2SAT 92
[2021-07-07 13:56] VITALS: O2SAT 91
[2021-07-07 14:37] LABS: Troponin-I High Sensitivity 8.3 ng/L (<3.5-35.0)
[2021-07-07 14:44] VITALS: BP 159/96; PULSE 94; RESP 16; O2SAT 91
[2021-07-07 15:09] LABS: COVID-19 Test Negative (Negative)
[2021-07-07] MEDS: Omeprazole 20 MG CAPSULE.DR PO (15:30)
--- NOTE | 2021-07-07 15:33 | PM.IMHP ---
History of Present Illness Date of Service: 07/07/21 Chief Complaint: vertigo 61yo M with bladder cancer, s/p neoadjuvant chemotherapy and cystoprostatectomy; mild aortic stenosis; stable pulmonary nodules; dyslipidemia; PHIPPS, GERD, and obesity who was in his usual state of health until this morning, when he had the sudden onset of dizziness, which he describes as vertigo rather than lightheadedness. He was nauseous and vomited. This occurred after he was sitting in his parked car with the engine running for 1.5 hr, though it turns out that this was in an open parking lot, not a garage. However, due to initial concern for CO poisoning, he was started on 15L O2 via NRB until carboxyhemoglobin result returned normal. He has not had this type of vertigo before. He denies fever, ear pain, tinnitus, ear trauma, head trauma, dyspnea, cough, or chest pain. Denies weakness or numbness of extremities. The vertigo is provoked by turning his head either way. He was given meclizine and diazpem in the ED but was unable to stand; he became nauseous, pale, and diaphoretic. CT of the head showed chronic microangiopathy but no acute CVA, and CTA of the neck showed no large vessel stenosis. Lungs were noted to have significant emphysema. Review of Systems Review of Systems: Yes all other systems are reviewed and are negative [facility] Medical History Bladder cancer GERD (gastroesophageal reflux disease) Hyperlipidemia Impaired glucose tolerance PHIPPS (nonalcoholic steatohepatitis) Obesity (BMI 30-39.9) Pulmonary nodule Family History Father Diabetes Lung cancer CAD (coronary artery disease) Mother Lung cancer Surgical History H/O total cystectomy History of cystoscopy History of shoulder surgery Social History Housing: House Alcohol intake: never Patient Tobacco Use Status: Former Tobacco user Tobacco use type: Cigarette Years Smoked: 30 years ago(02/2020) e-Cigarette/Vaping Use: Never Used Second Hand Smoke Exposure: No Advance Directives: No Current occupational status: retired [employer] Allergies Allergy/AdvReac Type Severity Reaction Status Date / Time No Known Allergies Allergy Verified 03/07/21 11:22 [No Known Allergies*] Active Medications: Current Medications Atorvastatin Calcium (Atorvastatin Calcium 20 Mg Tablet) 20 mg PO DAILY [facility] Meclizine HCl (Meclizine Hcl 25 Mg Tablet) 25 mg PO Q6H PRN PRN Reason: vertigo Omeprazole (Omeprazole 20 Mg Capsule.Dr) 20 mg PO BID@0630,1630 [facility] Pharmacy Consult (Consult Rx Perform Med Rec) 1 each MISCELLANE ONCE PRN PRN Reason: Consult order Pharmacy Consult (Consult Rx Perform Med Rec) 1 each MISCELLANE ONCE PRN PRN Reason: Consult order Vitamin D (Cholecalciferol (Vitamin D3) 25 Mcg Tablet) 25 mcg PO DAILY [facility] Physical Exam Vital Signs and Narrative: Vital Signs: Last Vital Signs Temp 98 F 07/07/21 09:39 Pulse 94 07/07/21 14:44 Resp 16 07/07/21 14:44 BP 159/96 H 07/07/21 14:44 Pulse Ox 91 L 07/07/21 14:44 BMI result Body Mass Index 30.9 Gen: in no acute distress HEENT: sclera anicteric, moist mucus membranes, TMs intact bilaterally, R- and downward-beating nystagmus noted Neck: supple Lungs: clear to auscultation bilaterally Heart: regular rate and rhythm, 2/6 <> murmur at base Abd: soft, non-tender, non-distended, obese Ext: no edema Skin: warm/well-perfused Neuro: alert and oriented x3, no pronator drift, no extremity weakness, normal coordination Psych: appropriate affect Results Labs CBC and Chem 7: 07/07/21 09:53 07/07/21 09:53 Labs: Laboratory Results - last 24 hr 07/07/21 07/07/21 07/07/21 09:53 09:53 09:53 MCV 85.1 MCH 27.4 MCHC 32.2 RDW 11.9 Plt Count 175 MPV 10.4 Immature Gran % (Auto) 0.5 H Neut % (Auto) 66.3 Lymph % (Auto) 21.9 [place] % (Auto) 8.6 Eos % (Auto) 2.3 Baso % (Auto) 0.4 Lymph # (Auto) 1.7 [place] # (Auto) 0.7 Eos # (Auto) 0.2 Baso # (Auto) 0.0 Abs Immat Gran (auto) 0.04 H Absolute Neuts (auto) 5.0 Absolute Nucleated RBC 0.000 Nucleated RBC % (auto) 0.0 D-Dimer High Sensitivty Carboxyhemoglobin % Anion Gap 16 Estim Creat Clear Calc 103.2 Estimated GFR > 60 Random Glucose 127 H Lactic Acid Calcium 9.6 Magnesium 2.1 Total Bilirubin 0.4 Direct Bilirubin < 0.2 AST 36 ALT 52 H Alkaline Phosphatase 97 Troponin I High Sens 6.9 Total Protein 7.6 Albumin 4.6 Urine Color Urine Appearance Urine pH Ur Specific [place] Urine Protein Urine Glucose (UA) Urine Ketones Urine Blood Urine Nitrite Ur Leukocyte Esterase Urine RBC Urine WBC Ur Squamous Epith Cells Ur Renal Epithelial Cell Urine Bacteria Urine Opiates Screen Urine Fentanyl Screen Ur Barbiturates Screen Ur Phencyclidine Scrn Ur Amphetamines Screen U Benzodiazepines Scrn Urine Cocaine Screen U Marijuana (THC) Screen Ethyl Alcohol COVID-19 (SPENSER) COVID-[facility] labs 07/07/21 07/07/21 07/07/21 09:53 09:56 12:44 MCV MCH MCHC RDW Plt Count MPV Immature Gran % (Auto) Neut % (Auto) Lymph % (Auto) [place] % (Auto) Eos % (Auto) Baso % (Auto) Lymph # (Auto) [place] # (Auto) Eos # (Auto) Baso # (Auto) Abs Immat Gran (auto) Absolute Neuts (auto) Absolute Nucleated RBC Nucleated RBC % (auto) D-Dimer High Sensitivty Carboxyhemoglobin % 0.4 Anion Gap Estim Creat Clear Calc Estimated GFR Random Glucose Lactic Acid 1.4 Calcium Magnesium Total Bilirubin Direct Bilirubin AST ALT Alkaline Phosphatase Troponin I High Sens Total Protein Albumin Urine Color Urine Appearance Urine pH Ur Specific [place] Urine Protein Urine Glucose (UA) Urine Ketones Urine Blood Urine Nitrite Ur Leukocyte Esterase Urine RBC Urine WBC Ur Squamous Epith Cells Ur Renal Epithelial Cell Urine Bacteria Urine Opiates Screen Urine Fentanyl Screen Ur Barbiturates Screen Ur Phencyclidine Scrn Ur Amphetamines Screen U Benzodiazepines Scrn Urine Cocaine Screen U Marijuana (THC) Screen Ethyl Alcohol < 10 COVID-19 (SPENSER) COVID-19 [facility] 07/07/21 07/07/21 07/07/21 12:44 12:44 12:44 MCV MCH MCHC RDW Plt Count MPV Immature Gran % (Auto) Neut % (Auto) Lymph % (Auto) [place] % (Auto) Eos % (Auto) Baso % (Auto) Lymph # (Auto) [place] # (Auto) Eos # (Auto) Baso # (Auto) Abs Immat Gran (auto) Absolute Neuts (auto) Absolute Nucleated RBC Nucleated RBC % (auto) D-Dimer High Sensitivty 151 Carboxyhemoglobin % Anion Gap Estim Creat Clear Calc Estimated GFR Random Glucose Lactic Acid Calcium Magnesium Total Bilirubin Direct Bilirubin AST ALT Alkaline Phosphatase Troponin I High Sens Total Protein Albumin Urine Color YELLOW Urine Appearance HAZY Urine pH 7.0 Ur Specific [place] <= 1.005 Urine Protein NEG Urine Glucose (UA) NEG Urine Ketones NEG Urine Blood TRACE Urine Nitrite NEG Ur Leukocyte Esterase NEG Urine RBC 0 Urine WBC 5-9 H Ur Squamous Epith Cells NONE Ur Renal Epithelial Cell 3+ Urine Bacteria NONE Urine Opiates Screen Not Detected Urine Fentanyl Screen Not Detected Ur Barbiturates Screen Not Detected Ur Phencyclidine Scrn Not Detected Ur Amphetamines Screen Not Detected U Benzodiazepines Scrn Not Detected Urine Cocaine Screen Not Detected U Marijuana (THC) Screen Not Detected Ethyl Alcohol COVID-19 (SPENSER) [facility]-[employer] Com 07/07/21 07/07/21 14:06 14:47 MCV MCH MCHC RDW Plt Count MPV Immature Gran % (Auto) Neut % (Auto) Lymph % (Auto) [place] % (Auto) Eos % (Auto) Baso % (Auto) Lymph # (Auto) [place] # (Auto) Eos # (Auto) Baso # (Auto) Abs Immat Gran (auto) Absolute Neuts (auto) Absolute Nucleated RBC Nucleated RBC % (auto) D-Dimer High Sensitivty Carboxyhemoglobin % Anion Gap Estim Creat Clear Calc Estimated GFR Random Glucose Lactic Acid Calcium Magnesium Total Bilirubin Direct Bilirubin AST ALT Alkaline Phosphatase Troponin I High Sens 8.3 Total Protein Albumin Urine Color Urine Appearance Urine pH Ur Specific [place] Urine Protein Urine Glucose (UA) Urine Ketones Urine Blood Urine Nitrite Ur Leukocyte Esterase Urine RBC Urine WBC Ur Squamous Epith Cells Ur Renal Epithelial Cell Urine Bacteria Urine Opiates Screen Urine Fentanyl Screen Ur Barbiturates Screen Ur Phencyclidine Scrn Ur Amphetamines Screen U Benzodiazepines Scrn Urine Cocaine Screen U Marijuana (THC) Screen Ethyl Alcohol COVID-19 (SPENSER) Negative COVID-19 Clin Com See Note Imaging Radiologist's Impressions: Impressions Chest X-Ray 07/07/21 10:15 IMPRESSION: Hypoexpanded lungs without acute process. Head CT 07/07/21 11:27 IMPRESSION: CT head: No intracranial hemorrhage or large acute infarction. Moderate to severe hypoattenuation throughout the cerebral white matter presumably on the basis of chronic microangiopathy but could be further evaluated with MRI. CTA neck: No hemodynamically significant stenosis in the major arteries of the neck. CTA head: No large vessel occlusion or significant stenosis within the intracranial circulation. Additional findings: Significant emphysema noted in the lungs. This critical result was discussed with Dr. Brooks on 07/07/2021 11:45 AM, and it was ascertained that the content and urgency of the report was understood at the time of direct communication. Head/Neck CTA 07/07/21 11:27 IMPRESSION: CT head: No intracranial hemorrhage or large acute infarction. Moderate to severe hypoattenuation throughout the cerebral white matter presumably on the basis of chronic microangiopathy but could be further evaluated with MRI. CTA neck: No hemodynamically significant stenosis in the major arteries of the neck. CTA head: No large vessel occlusion or significant stenosis within the intracranial circulation. Additional findings: Significant emphysema noted in the lungs. This critical result was discussed with Dr. Brooks on 07/07/2021 11:45 AM, and it was ascertained that the content and urgency of the report was understood at the time of direct communication. Assessment and Plan (1) Vertigo: Status: Acute Plan 61yo M with bladder cancer, s/p neoadjuvant chemotherapy and cystoprostatectomy; mild aortic stenosis; stable pulmonary nodules; dyslipidemia; PHIPPS, GERD, and obesity presenting with acute onset of vertigo with inability to ambulate due to nausea. # vertigo - likely BPPV but r/o posterior circulcation CVA - admit to telemetry on observation, MRI brain to r/o posterior circulation CVA, Neuro consult, PT evaluation, and prn meclizine # incidental emphysema - outpt PFTs # HLD - continue statin # VTE ppx - LMWH # code - full Quality Stroke Does the patient have a stroke diagnosis?: No VTE Prior VTE?: No VTE Risk Level:: Medical - moderate - high VTE Device Contraindication: N/A - Device Ordered VTE Drug Contraindication: N/A - Med Ordered
[2021-07-07] MEDS: 0.9 % Sodium Chloride Flush 3 ML SYRINGE IVFLUSH (16:48)
[2021-07-07] MEDS: Enoxaparin Sodium 40 MG/0.4 ML SYRINGE SUBCUT (16:48)
[2021-07-07] MEDS: Meclizine HCl 25 MG TABLET PO (16:52)
--- NOTE | 2021-07-07 18:43 | PC.NURSE ---
at bedside, ate small amt of dinner, mainly fruit, skin wpd, c/o tiredness and resting w eyes closed
--- NOTE | 2021-07-07 19:55 | PC.NURSE ---
ambulated patient per primary nurses request, patient ambulated with steady gait, denied dizziness, pt and requesting that he be discharged to home with a script for antivert vs spending the night in the hospital. primary nurse was notified and Dr. Johnson was tiger texted to notify of pt request and to contact primary nurse with any concerns.
--- NOTE | 2021-07-07 20:34 | PM.EVENT ---
Event Note Date of Service: 07/07/21 Event Note: AMA note: Patient mentioned that he would does want to be admitted to the hospital and wants to leave. Explained to the patient about the risks involved in living is medical advise and complications. Patient verbalized he understood the risks. Signed AMA form. Given prescription for meclizine prn. off note: pt family wondered if pt can be discharged; I mentioned that few urgent cross covering issues going on the floors. Would need to wait untill the urgent issues are solved. Pt and family didnot want to wait and signed AMA form.
--- NOTE | 2021-07-07 21:08 | PC.NURSE ---
Hospitalist at bedside discussing pt and family request to leave AMA. AMA paperwork signed with primary RN and Hospitalist.
--- NOTE | 2021-07-08 10:44 | PM.DS ---
DS: Providers Provider Date of Service: 07/07/21 Date of admission: 07/07/21 15:30 Date of discharge: 07/07/21 Primary care physician: Seamus Gibbons MD Consults: 07/07/21 14:21 Consult to Neurology Routine Consulting Provider: [facility] Reason for consultation: vertigo, MRI pending DS: Diagnosis Discharge Diagnosis (1) Vertigo: Status: Acute (2) Left against medical advice: Status: Acute DS: Summary Hospital Course Hospital Course: from my admission H+P 07/07/21: 61yo M with bladder cancer, s/p neoadjuvant chemotherapy and cystoprostatectomy; mild aortic stenosis; stable pulmonary nodules; dyslipidemia; PHIPPS, GERD, and obesity who was in his usual state of health until this morning, when he had the sudden onset of dizziness, which he describes as vertigo rather than lightheadedness.? He was nauseous and vomited.? This occurred after he was sitting in his parked car with the engine running for 1.5 hr, though it turns out that this was in an open parking lot, not a garage.? However, due to initial concern for CO poisoning, he was started on 15L O2 via NRB until carboxyhemoglobin result returned normal.? He has not had this type of vertigo before.? He denies fever, ear pain, tinnitus, ear trauma, head trauma, dyspnea, cough, or chest pain.? Denies weakness or numbness of extremities.? The vertigo is provoked by turning his head either way.? He was given meclizine and diazpem in the ED but was unable to stand; he became nauseous, pale, and diaphoretic.? CT of the head showed chronic microangiopathy but no acute CVA, and CTA of the neck showed no large vessel stenosis.? Lungs were noted to have significant emphysema. He was admitted on observation status. MRI did not demosntrate posterior circulation CVA. On the night of 07/07/21, after I had left for the day, he signed out against medical advice despite the day camp counselor of the zinc miner. He was prescribed meclizine for symptom relief. Time Spent with Patient Time attestation: Total time spent providing and/or coordinating discharge services: Discharge coordination time: Less than 30 minutes Quality: Safe Use of Opioids Does Pt have an Active Cancer Diagnosis on the Problem List?: Yes Opioid Measure Date for [facility] Report: 06/08/21 Opioid Measure Time for [facility] Report: 10:47 Quality: Stroke Does the patient have a stroke diagnosis?: No Physical Exam Vital Signs: Vital Signs: Last Vital Signs Temp 98 F 07/07/21 09:39 Pulse 94 07/07/21 14:44 Resp 16 07/07/21 14:44 BP 159/96 H 07/07/21 14:44 Pulse Ox 91 L 07/07/21 14:44 BMI result Body Mass Index 30.9 see admission History and Physical from 07/07/21 DS: Data Data Completed and Pending Completed studies during hospitalization [Text1]: Laboratory Results WBC 7.5 X10*3/uL (4.8-10.8) 07/07/21 09:53 RBC 5.11 X10*6/uL (4.60-5.80) 07/07/21 09:53 Hgb 14.0 g/dl (14.0-18.0) 07/07/21 09:53 Hct 43.5 % (42.0-52.0) 07/07/21 09:53 MCV 85.1 fL (80.0-98.0) 07/07/21 09:53 MCH 27.4 pg (27.0-33.0) 07/07/21 09:53 MCHC 32.2 g/dl (31.0-36.0) 07/07/21 09:53 RDW 11.9 % (11.0-16.0) 07/07/21 09:53 Plt Count 175 X10*3/uL (160-400) 07/07/21 09:53 MPV 10.4 fL (9.4-12.4) 07/07/21 09:53 Immature Gran % (Auto) 0.5 % (0.0-0.4) H 07/07/21 09:53 Neut % (Auto) 66.3 % (45-73) 07/07/21 09:53 Lymph % (Auto) 21.9 % (20-40) 07/07/21 09:53 [place] % (Auto) 8.6 % (2-11) 07/07/21 09:53 Eos % (Auto) 2.3 % (0-4) 07/07/21 09:53 Baso % (Auto) 0.4 % (0-2) 07/07/21 09:53 Lymph # (Auto) 1.7 X10*3/uL (1.2-4.9) 07/07/21 09:53 [place] # (Auto) 0.7 X10*3/uL (0.1-1.2) 07/07/21 09:53 Eos # (Auto) 0.2 X10*3/uL (0.0-0.4) 07/07/21 09:53 Baso # (Auto) 0.0 X10*3/uL (0.0-0.2) 07/07/21 09:53 Abs Immat Gran (auto) 0.04 X10*3/uL (0.00-0.03) H 07/07/21 09:53 Absolute Neuts (auto) 5.0 x10*3/uL (2.0-8.3) 07/07/21 09:53 Absolute Nucleated RBC 0.000 X10*3/uL (0.0-0.012) 07/07/21 09:53 Nucleated RBC % (auto) 0.0 /100WBC (0.0-0.2) 07/07/21 09:53 D-Dimer High Sensitivty 151 NG/ML 07/07/21 12:44 Carboxyhemoglobin % 0.4 % 07/07/21 09:56 Sodium 139 mmol/L (135-145) 07/07/21 09:53 Potassium 4.5 mmol/L (3.3-5.1) 07/07/21 09:53 Chloride 107 mmol/L (96-108) 07/07/21 09:53 Carbon Dioxide 21 mmol/L (22-29) L 07/07/21 09:53 Anion Gap 16 (12-20) 07/07/21 09:53 BUN 16 mg/dL (9-16) 07/07/21 09:53 Creatinine 0.86 mg/dL (0.5-1.4) 07/07/21 09:53 Estim Creat Clear Calc 103.2 07/07/21 09:53 Estimated GFR > 60 07/07/21 09:53 Random Glucose 127 mg/dL (60-115) H 07/07/21 09:53 Lactic Acid 1.4 mmol/L (0.5-2.0) 07/07/21 12:44 Calcium 9.6 mg/dL (8.4-10.2) 07/07/21 09:53 Magnesium 2.1 mg/dL (1.6-2.6) 07/07/21 09:53 Total Bilirubin 0.4 mg/dL (0.0-1.0) 07/07/21 09:53 Direct Bilirubin < 0.2 mg/dL (0.0-0.5) 07/07/21 09:53 AST 36 U/L (5-37) 07/07/21 09:53 ALT 52 U/L (0-40) H 07/07/21 09:53 Alkaline Phosphatase 97 U/L (39-117) 07/07/21 09:53 Troponin I High Sens 8.3 ng/L (<3.5-35.0) 07/07/21 14:06 Total Protein 7.6 g/dL (6.5-8.0) 07/07/21 09:53 Albumin 4.6 g/dL (3.5-5.0) 07/07/21 09:53 Urine Color YELLOW 07/07/21 12:44 Urine Appearance HAZY 07/07/21 12:44 Urine pH 7.0 (5.0-8.0) 07/07/21 12:44 Ur Specific [place] <= 1.005 (1.005-1.025) 07/07/21 12:44 Urine Protein NEG MG/DL (NEG-TRACE) 07/07/21 12:44 Urine Glucose (UA) NEG MG/DL (NEG) 07/07/21 12:44 Urine Ketones NEG MG/DL (NEG) 07/07/21 12:44 Urine Blood TRACE (NEG) 07/07/21 12:44 Urine Nitrite NEG (NEG) 07/07/21 12:44 Ur Leukocyte Esterase NEG (NEG) 07/07/21 12:44 Urine RBC 0 /HPF (0) 07/07/21 12:44 Urine WBC 5-9 /HPF (0-4) H 07/07/21 12:44 Ur Squamous Epith Cells NONE /LPF 07/07/21 12:44 Ur Renal Epithelial Cell 3+ /LPF 07/07/21 12:44 Urine Bacteria NONE /LPF 07/07/21 12:44 Urine Opiates Screen Not Detected (Not Detect) 07/07/21 12:44 Urine Fentanyl Screen Not Detected (Not Detect) 07/07/21 12:44 Ur Barbiturates Screen Not Detected (Not Detect) 07/07/21 12:44 Ur Phencyclidine Scrn Not Detected (Not Detect) 07/07/21 12:44 Ur Amphetamines Screen Not Detected (Not Detect) 07/07/21 12:44 U Benzodiazepines Scrn Not Detected (Not Detect) 07/07/21 12:44 Urine Cocaine Screen Not Detected (Not Detect) 07/07/21 12:44 U Marijuana (THC) Screen Not Detected (Not Detect) 07/07/21 12:44 Ethyl Alcohol < 10 mg/dL 07/07/21 09:53 COVID-19 (SPENSER) Negative (Negative) 07/07/21 14:47 COVID-19 Clin Com See Note 07/07/21 14:47 Impressions Chest X-Ray 07/07/21 10:15 IMPRESSION: Hypoexpanded lungs without acute process. Head CT 07/07/21 11:27 IMPRESSION: CT head: No intracranial hemorrhage or large acute infarction. Moderate to severe hypoattenuation throughout the cerebral white matter presumably on the basis of chronic microangiopathy but could be further evaluated with MRI. CTA neck: No hemodynamically significant stenosis in the major arteries of the neck. CTA head: No large vessel occlusion or significant stenosis within the intracranial circulation. Additional findings: Significant emphysema noted in the lungs. This critical result was discussed with Dr. Brooks on 07/07/2021 11:45 AM, and it was ascertained that the content and urgency of the report was understood at the time of direct communication. Head/Neck CTA 07/07/21 11:27 IMPRESSION: CT head: No intracranial hemorrhage or large acute infarction. Moderate to severe hypoattenuation throughout the cerebral white matter presumably on the basis of chronic microangiopathy but could be further evaluated with MRI. CTA neck: No hemodynamically significant stenosis in the major arteries of the neck. CTA head: No large vessel occlusion or significant stenosis within the intracranial circulation. Additional findings: Significant emphysema noted in the lungs. This critical result was discussed with Dr. Brooks on 07/07/2021 11:45 AM, and it was ascertained that the content and urgency of the report was understood at the time of direct communication. Brain MRI 07/07/21 16:38 IMPRESSION: No acute intracranial abnormality identified. Specifically no evidence of infarction, hemorrhage, or mass. Extensive T2/FLAIR hyperintensity is seen throughout the cerebral white matter which is nonspecific but may reflect sequela of significant chronic microangiopathy. Demyelinating processes is an additional consideration but felt less likely. Discharge Plan Discharge Patient Disposition: Left Against Medical Advice Discharge Medications: No Action cholecalciferol (vitamin D3) 25 mcg (1,000 unit) capsule 25 mcg PO DAILY 90 Days Qty: 90 3RF atorvastatin 20 mg tablet 20 mg PO DAILY Qty: 90 2RF omeprazole 20 mg capsule,delayed release(DR/EC) 20 mg PO BID 90 Days Qty: 180 2RF Discharge Orders: Discharge Order (Routine); Ordered 07/08/21 Ordered By: Vanesa Hwang Stand Alone Forms: Against Medical Advice Care Plan Goals: recovery from vertigo Health Concerns: vertigo Plan of Treatment: signed out AMA meclizine prescribed follow up with primary care Assessment: see discharge summary Discharge Date/Time: 07/07/21 22:25
== END 2021-07-07 22:25 | disposition left against medical advice (07) ==
LOC: HO.ED 14:10 → HO.EDOVER 16:02 → HO.S3 19:13
PROVIDERS: Admitting Provider Family Medicine; Emergency Provider Emergency Medicine; PCP Internal Medicine; Visit Provider Family Medicine
DX: R42 Dizziness and giddiness (principal); J43.9 Emphysema, unspecified; I35.0 Nonrheumatic aortic (valve) stenosis; I45.10 Unspecified right bundle-branch block; E78.5 Hyperlipidemia, unspecified; K75.81 Nonalcoholic steatohepatitis (NASH); K21.9 Gastro-esophageal reflux disease without esophagitis; Z87.891 Personal history of nicotine dependence; Z20.822 Contact with and (suspected) exposure to COVID-19; Z92.21 Personal history of antineoplastic chemotherapy; Z79.899 Other long term (current) drug therapy; Z53.29 Procedure and treatment not carried out because of patient's decision for other reasons
CPT/HCPCS: 36415; 70450; 70496; 70498; 70551; 71045; 80048; 80076; 80307; 81001; 81003; 82077; 82375; 83605; 83735; 84484; 85025; 85379; 87086; 87635; 93005; 96361; 96372; 96374; 96376; 99218; 99284; 99285; J1650; J2405; Q9967

== ENCOUNTER 2021-08-08 07:58 | Outpatient (REF) | payer BC, SELFPAY ==
[2021-08-08 08:24] LABS: MANUAL DIFF FLAG NO
[2021-08-08 08:39] LABS: Basophils Absolute Auto 0.1 X10*3/uL (0.0-0.2); Basophils Percent Auto 0.9 % (0-2); Eosinophils Absolute Auto 0.2 X10*3/uL (0.0-0.4); Eosinophils Percent Auto 3.8 % (0-4); Hematocrit 41.7 % (42.0-52.0); Hemoglobin 13.6 g/dl (14.0-18.0); Imm Gran Abs Auto 0.02 X10*3/uL (0.00-0.03); Imm Gran Pct Auto 0.3 % (0.0-0.4); Lymphocytes Absolute Auto 1.8 X10*3/uL (1.2-4.9); Lymphocytes Percent Auto 28.1 % (20-40); Mean Corpuscular HGB Conc 32.6 g/dl (31.0-36.0); Mean Corpuscular Hemoglobin 27.8 pg (27.0-33.0); Mean Corpuscular Volume 85.3 fL (80.0-98.0); Mean Platelet Volume 10.5 fL (9.4-12.4); Monocytes Absolute Auto 0.7 X10*3/uL (0.1-1.2); Monocytes Percent Auto 10.2 % (2-11); Neutrophils Absolute Auto 3.6 x10*3/uL (2.0-8.3); Neutrophils Percent Auto 56.7 % (45-73); Platelet Count 199 X10*3/uL (160-400); Red Blood Count 4.89 X10*6/uL (4.60-5.80); Red Cell Distribution Width 11.9 % (11.0-16.0); White Blood Count 6.4 X10*3/uL (4.8-10.8)
[2021-08-08 08:43] LABS: Appearance Urine CLEAR; Color Urine YELLOW; Glucose Urine UA NEG (NEG); Leukocyte Esterase Urine TRACE (NEG); Nitrite Urine NEG (NEG); PH 6.5 (5.0-8.0); Urine Blood TRACE (NEG); Urine Ketones NEG (NEG); Urine Protein NEG (NEG-TRACE)
[2021-08-08 09:03] LABS: Alanine Aminotransferase 40 U/L (0-40); Albumin Level 4.4 g/dL (3.5-5.0); Alkaline Phosphatase 92 U/L (39-117); Anion Gap 12 (12-20); Aspartate Amino Transferase 25 U/L (5-37); Bilirubin Total 0.5 mg/dL (0.0-1.0); Blood Urea Nitrogen 16 mg/dL (9-16); Calcium 9.3 mg/dL (8.4-10.2); Carbon Dioxide 24 mmol/L (22-29); Chloride 108 mmol/L (96-108); Cholesterol 195 mg/dL; Estimated Glomerular Filt Rate > 60; Glucose Random 109 mg/dL (60-115); HDL Cholesterol 41 mg/dL; LDL Cholesterol Calculated 136 mg/dl; Potassium 4.2 mmol/L (3.3-5.1); Sodium 140 mmol/L (135-145); Triglycerides 94 mg/dL
[2021-08-08 09:04] LABS: Renal Epithelial Cells Urine 1+ /LPF; Squamous Epithelial Cell Urine TRACE /LPF
[2021-08-08 09:06] LABS: Amorphous Sediment Urine 2+ /LPF
[2021-08-08 09:07] LABS: RBC Urine 0-2 /HPF (0)
[2021-08-08 09:08] LABS: Bacteria Urine TRACE /LPF
[2021-08-08 09:32] LABS: Free T4 (Free Thyroxine) 0.92 ng/dL (0.71-1.85); Prostate Specific Antigen Scr < 0.05 ng/mL (<0.05-4.0); Thyroid Stimulating Hormone 2.11 uIU/mL (0.32-4.0)
[2021-08-08 11:15] LABS: Folate 5.7 ng/mL (> or = 4.0); Vitamin B12 250 pg/mL (200-900)
== END 2021-08-08 07:59 | disposition home or self-care (01) ==
LOC: HO.LAB 07:58
PROVIDERS: PCP Internal Medicine; Visit Provider Internal Medicine
DX: E78.00 Pure hypercholesterolemia, unspecified (principal)
CPT/HCPCS: 36415; 80053; 80061; 81001; 82607; 82746; 84153; 84439; 84443; 85025

== ENCOUNTER 2021-09-07 08:11 | Outpatient (REF) | payer BC, SELFPAY ==
[2021-09-07 09:04] LABS: MANUAL DIFF FLAG NO
[2021-09-07 09:35] LABS: Basophils Percent Auto 0.5 % (0-2); Eosinophils Absolute Auto 0.2 X10*3/uL (0.0-0.4); Eosinophils Percent Auto 2.9 % (0-4); Hematocrit 43.6 % (42.0-52.0); Imm Gran Abs Auto 0.03 X10*3/uL (0.00-0.03); Imm Gran Pct Auto 0.5 % (0.0-0.4); Lymphocytes Absolute Auto 1.9 X10*3/uL (1.2-4.9); Lymphocytes Percent Auto 28.2 % (20-40); Mean Corpuscular HGB Conc 32.1 g/dl (31.0-36.0); Mean Corpuscular Hemoglobin 27.5 pg (27.0-33.0); Mean Corpuscular Volume 85.7 fL (80.0-98.0); Mean Platelet Volume 10.4 fL (9.4-12.4); Monocytes Absolute Auto 0.6 X10*3/uL (0.1-1.2); Monocytes Percent Auto 8.9 % (2-11); Neutrophils Absolute Auto 3.9 x10*3/uL (2.0-8.3); Platelet Count 205 X10*3/uL (160-400); Red Blood Count 5.09 X10*6/uL (4.60-5.80); Retic HGB Equivalent 32.9 pg (30.0-35.0); Reticulocyte Percent 1.8 % (0.5-1.8); Reticulocytes Absolute 0.093 X10*6/uL (0.026-0.095); White Blood Count 6.6 X10*3/uL (4.8-10.8)
[2021-09-07 10:11] LABS: Iron 148 mcg/dL (45-160); Percent Iron Saturation 34 % (15-50); Total Iron Binding Capacity 439 mcg/dL (228-428); Unsaturated Iron Binding 291 ug/dL
[2021-09-07 10:24] LABS: Estimated Average Glucose 117 mg/dL; Hemoglobin A1c % 5.7 %
[2021-09-07 10:35] LABS: Ferritin 503 ng/mL (20-250)
[2021-09-07 10:44] LABS: Folate 6.7 ng/mL (> or = 4.0); Vitamin B12 265 pg/mL (200-900)
== END 2021-09-07 08:12 | disposition home or self-care (01) ==
LOC: HO.LAB 08:11
PROVIDERS: PCP Internal Medicine; Visit Provider Internal Medicine
DX: D64.9 Anemia, unspecified (principal); R73.02 Impaired glucose tolerance (oral)
CPT/HCPCS: 36415; 82607; 82728; 82746; 83036; 83540; 85025; 85045

== ENCOUNTER 2023-03-08 09:34 | Outpatient (AMB) | payer BC, SELFPAY ==
[2023-03-08 10:01] VITALS: BP 144/82; PULSE 78; O2SAT 97; BMI 29.3
--- NOTE | 2023-03-08 10:01 | A.OFFPC_ITS ---
Vital Signs 03/08/23 10:01 03/08/23 10:25 Height 5 ft 10 in Weight 204 lb BMI 29.3 BP 144/82 H 140/90 H Blood Pressure Location Lt brachial Lt brachial Position Sitting Sitting Pulse 78 Pulse Source Pulse Oximeter Pulse Oximetry (%) 97 Oxygen Delivery Method Room Air Intake Visit Reasons: 6 month f/u Allergies No Known Allergies [No Known Allergies*] Allergy (Verified 03/08/23 10:02) Tobacco use date assessed: 03/08/23 Fall risk assessment: No Falls in past year Last assessed Fall Risk: 03/08/23 Dental Screening Dental Screen Date: 03/08/23 Did you have a dental visit in the last 12 months?: No Did you have a dental problem in the last 6 months where you did not have access to dental care?: No Was dental information given to patient?: No HPI 6 month f/u HPI Details 62-year-old overweight male with a histo ry of GERD Allen hypercholesterolemia impaired glucose tolerance coming in for follow-up. August 2022 last seen new for physical exam. Patient also has a history of bladder cancer. Colonoscopy May 2019 [facility] Medical History (Updated 03/08/23 @ 10:30 by Seamus Gibbons MD) Left against medical advice Pulmonary nodule Impaired glucose tolerance Obesity (BMI 30-39.9) Bladder cancer Hyperlipidemia ALLEN (nonalcoholic steatohepatitis) GERD (gastroesophageal reflux disease) Surgical History H/O total cystectomy History of cystoscopy History of shoulder surgery Family History (Updated 09/06/22 @ 09:14 by Roxy Chi CMA) Father Diabetes Lung cancer CAD (coronary artery disease) Mother Lung cancer CVA (cerebral vascular accident) Brother Esophageal cancer Social History Housing: House Alcohol intake: never Patient Tobacco Use Status: Former Tobacco user Tobacco use type: Cigarette Years Smoked: 30 years ago(02/2020) e-Cigarette/Vaping Use: Never Used Second Hand Smoke Exposure: No Current occupational status: retired Cognitive needs: No Hearing needs: No Vision needs: Yes Questionnaire PHQ-9 Over the last 2 weeks, how often have you been bothered by any of the following problems? 1. Little interest or pleasure in doing things: not at all 2. Feeling down, depressed, or hopeless: not at all 3. Trouble falling or staying asleep, or sleeping too much: not at all 4. Feeling tired or having little energy: not at all 5. Poor appetite or overeating: not at all 6. Feeling bad about yourself - or that you are a failure or have let yourself or your family down: not at all 7. Trouble concentrating on things, such as reading the newspaper or watching television: not at all 8. Moving or speaking so slowly that other people could have noticed. Or the opposite - being so fidgety or restless that you have been moving around a lot more than usual: not at all 9. Thoughts that you would be better off or of hurting yourself in some way: not at all Total score: 0 Depression Screening Interpretation: Negative Depression Screening Done: Yes Source: Developed by Drs. Armando Jama, Valeri Solitario, Mando Wallace and colleagues, with an educational tiffany from [employer]. Thrive Questionnaire Date Thrive assessed: 09/06/22 AUDIT C Alcohol Use Questionnaire (AUDIT-C) 1. How often do you have a drink containing alcohol?: Never 3. How often do you have six or more drinks on one occasion?: Never Total Score: 0 SHAQUILLE-7 AMB Questionnaire SHAQUILLE-7 Date SHAQUILLE - 7 assessed: 09/06/22 Source: Developed by Drs. Armando Jama, Valeri Solitario, Mando Wallace and colleagues, with an educational tiffany from [employer]. Physical exam (Primary Care) Vital Signs: Last Vital Signs Pulse 78 03/08/23 10:01 BP 144/82 H 03/08/23 10:01 Pulse Ox 97 03/08/23 10:01 Oxygen Delivery Method Room Air 03/08/23 10:01 BMI result Body Mass Index 29.3 Tobacco/Smoking Status: Tobacco use Status Tobacco use date assessed 03/08/23 03/08/23 10:04 Patient Tobacco Use Status Former Tobacco user 03/08/23 10:04 Tobacco use type Cigarette 03/08/23 10:04 e-Cigarette/Vaping Use Never Used 03/08/23 10:04 PHQ-9: PHQ-9 Score PHQ-9: Total score 0 03/08/23 10:16 Depression Screening Interpretation: Negative Thrive Assessment: Date of Thrive Assessment Date Thrive assessed 09/06/22 03/08/23 10:04 Const General: alert; No acute distress Eyes Conjunctivae: conjunctivae normal Resp Auscultation: clear to auscultation bilaterally Cardio Rate: regular rate Rhythm: regular rhythm GI Inspection: Yes normal to inspection Extrem General: Yes normal to inspection and No edema Office Procedures Flu Questionnaire Does the patient have a severe egg allergy?: No Does the patient have severe life threatening allergies?: No Does the patient have a fever or illness today?: No Has the patient ever had Guillain-[place] Syndrome?: No Has the patient ever had any past reaction to a flu shot?: No Immunizations flu vacc [id number] 6mos up(PF) 60 mcg(15 mcgx4)/0.5 mL IM syringe Performing Provider: Seamus Gibbons MD Performing Location: [facility] Administered by: Roxy Chi CMA on 03/08/23 10:16 Dose Route Admin Location Dispensed Lot Number Expiration Date NDC [employer] 0.5 mL IM Left Deltoid 0.5 mL [id number] 10/07/23 51735-755-62 [employer] VIS Given Date VIS Provided VIS Publication Date 03/08/23 Single Vaccine 20 Eligibility Eligibility Date Funding Source Not [facility] Eligible 03/08/23 Private Assessment and Plan Assessment & Plan (1) Overweight (BMI 25.0-29.9): Code(s): E66.3 - Overweight Plan: Continue with diet and exercise (2) GERD (gastroesophageal reflux disease): Code(s): K21.9 - Gastro-esophageal reflux disease without esophagitis Qualifiers: Esophagitis presence: without esophagitis Qualified Code(s): K21.9 - Gastro-esophageal reflux disease without esophagitis Plan: Avoid the foods that causes that usually spicy foods, tomato products, juices, coffee, soda and foods that your sensitive to. After eating do not lie down, allow 3-4 hours before in lie down. And keep the head of bed above 30 degrees to avoid the acid from going up. On omeprazole (3) ALLEN (nonalcoholic steatohepatitis): Code(s): K75.81 - Nonalcoholic steatohepatitis (ALLEN) Plan: Low-fat diet and exercise (4) Hyperlipidemia: Code(s): E78.5 - Hyperlipidemia, unspecified Qualifiers: Hyperlipidemia type: pure hypercholesterolemia Qualified Code(s): E78.00 - Pure hypercholesterolemia, unspecified Plan: Avoid fried foods, chicken skin, eggs, butter margarine, pastries and meat. Be it pork or beef they have a lot of cholesterol LDL goal of less than 130 and triglyceride of less than 150. Patient is taking atorvastatin 20 mg once a day (5) Bladder cancer: Comment: Cystectomy and prostatectomy Sis January 2017 chemotherapy at [facility] 12/2016 Code(s): C67.9 - Malignant neoplasm of bladder, unspecified Qualifiers: Bladder location: unspecified site Qualified Code(s): C67.9 - Malignant neoplasm of bladder, unspecified Plan: Continue to follow-up with surveillance with Hematology-Oncology (6) Impaired glucose tolerance: Code(s): R73.02 - Impaired glucose tolerance (oral) Plan: Decrease the amount of carbohydrate intake, pasta, bread, rice and potatoes are all sugar and that is aside from all the sweet stuff, remember that fruits are good but they are Sweet also. (7) Blood pressure elevated without history of HTN: Code(s): R03.0 - Elevated blood-pressure reading, without diagnosis of hypertension Plan: advised to monitor BP at home (8) Aortic stenosis, mild: Comment: 2018, decline 08/2022, decline 02/2023 Code(s): I35.0 - Nonrheumatic aortic (valve) stenosis Orders: Orders Influenza [id number] Immunization Today Z23 - Encounter for immunization Coding Level of Care Code Est Pt Level 4 (16427) Diagnoses Overweight (BMI 25.0-29.9) E66.3 Gastroesophageal reflux disease without esophagitis K21.9 Esophagitis presence: without esophagitis ALLEN (nonalcoholic steatohepatitis) K75.81 Pure hypercholesterolemia E78.00 Hyperlipidemia type: pure hypercholesterolemia Malignant neoplasm of urinary bladder, unspecified site C67.9 Bladder location: unspecified site Impaired glucose tolerance R73.02 Blood pressure elevated without history of HTN R03.0 Aortic stenosis, mild I35.0
[2023-03-08 10:25] VITALS: BP 140/90
== END 2023-03-08 10:33 | disposition home or self-care (01) ==
PROVIDERS: Visit Provider Internal Medicine
DX: E78.00 Pure hypercholesterolemia, unspecified (principal); C67.9 Malignant neoplasm of bladder, unspecified; E66.3 Overweight; Z23 Encounter for immunization; K21.9 Gastro-esophageal reflux disease without esophagitis; K75.81 Nonalcoholic steatohepatitis (NASH); R73.02 Impaired glucose tolerance (oral); R03.0 Elevated blood-pressure reading, without diagnosis of hypertension; I35.0 Nonrheumatic aortic (valve) stenosis
CPT/HCPCS: 90471; 90686; 99214

== ENCOUNTER 2023-04-13 08:32 | Outpatient (REF) | payer MEDICARE, SELFPAY | END 2023-04-13 08:33 | disposition home or self-care (01) | LOC: HO.LAB 08:32 | PROVIDERS: PCP Internal Medicine; Visit Provider Internal Medicine | DX: Z12.5 Encounter for screening for malignant neoplasm of prostate (principal); K21.9 Gastro-esophageal reflux disease without esophagitis; E78.00 Pure hypercholesterolemia, unspecified | CPT/HCPCS: 36415; 80053; 80061; 82607; 82728; 82746; 83540; 84153; 84439; 84443; 85025; 85045 ==

== ENCOUNTER 2023-09-12 09:53 | Outpatient (AMB) | payer MEDICARE, SELFPAY ==
[2023-09-12 10:11] VITALS: BP 132/72; PULSE 93; O2SAT 98; BMI 28.4
--- NOTE | 2023-09-12 10:11 | MHC.PC.OV ---
Vital Signs 09/12/23 10:11 Height 5 ft 10 in Weight 89.811 kg BMI 28.4 BP 132/72 Blood Pressure Location Lt brachial Position Sitting Pulse 93 Pulse Source Pulse Oximeter Pulse Oximetry (%) 98 Oxygen Delivery Method Room Air Intake Visit Reasons: elevated BP, cholesterol, annual PE Allergies No Known Allergies [No Known Allergies*] Allergy (Verified 09/12/23 10:12) Medication List - Last Reconciled 09/12/23 by Seamus Gibbons MD omeprazole 20 mg PO DAILY Tobacco use date assessed: 09/12/23 Fall risk assessment: No Falls in past year Last assessed Fall Risk: 09/12/23 Dental Screening Dental Screen Date: 09/12/23 Did you have a dental visit in the last 12 months?: No Did you have a dental problem in the last 6 months where you did not have access to dental care?: No Was dental information given to patient?: No HPI elevated BP, cholesterol, annual PE HPI Details 63-year-old overweight male with GERD Allen hypercholesterolemia impaired glucose tolerance with a history of bladder cancer coming in for physical exam last seen in 02/26/2023. Patient's colonoscopy was last done in 05/29 5 years. [facility] Medical History (Updated 09/12/23 @ 10:40 by Seamus Gibbons MD) Left against medical advice Pulmonary nodule Impaired glucose tolerance Obesity (BMI 30-39.9) Bladder cancer Hyperlipidemia ALLEN (nonalcoholic steatohepatitis) GERD (gastroesophageal reflux disease) Surgical History H/O total cystectomy History of cystoscopy History of shoulder surgery Family History (Updated 09/06/22 @ 09:14 by Roxy Chi CMA) Father Diabetes Lung cancer CAD (coronary artery disease) Mother Lung cancer CVA (cerebral vascular accident) Brother Esophageal cancer Social History (Updated 09/12/23 @ 10:36 by Seamus Gibbons MD) Housing: House Alcohol intake: never Comment: (09/2023- 30 years now) Patient Tobacco Use Status: Former Tobacco user Tobacco use type: Cigarette Years Smoked: 30 years ago(02/2020) e-Cigarette/Vaping Use: Never Used Second Hand Smoke Exposure: No Current occupational status: retired Cognitive needs: No Hearing needs: No Vision needs: Yes Questionnaire PHQ-9 Over the last 2 weeks, how often have you been bothered by any of the following problems? 1. Little interest or pleasure in doing things: not at all 2. Feeling down, depressed, or hopeless: not at all 3. Trouble falling or staying asleep, or sleeping too much: not at all 4. Feeling tired or having little energy: not at all 5. Poor appetite or overeating: not at all 6. Feeling bad about yourself - or that you are a failure or have let yourself or your family down: not at all 7. Trouble concentrating on things, such as reading the newspaper or watching television: not at all 8. Moving or speaking so slowly that other people could have noticed. Or the opposite - being so fidgety or restless that you have been moving around a lot more than usual: not at all 9. Thoughts that you would be better off or of hurting yourself in some way: not at all Total score: 0 Depression Screening Interpretation: Negative Depression Screening Done: Yes Source: Developed by Drs. Armando Jama, Valeri Solitario, Mando Wallace and colleagues, with an educational tiffany from [employer]. Thrive Questionnaire Date Thrive assessed: 09/12/23 I am a: Patient What is your living situation today?: I have a steady place to live Within the past 12 months, did the food you bought not last and you didn't have the money to get more?: Never true Within the past 12 months, did you worry whether your food would run out before you got money to buy more?: Never true Do you have trouble paying for medicines?: No Do you have trouble getting transportation to medical appointments?: No Do you have trouble paying your heating and electricity bill?: No Do you have trouble taking care of your child, family member or friend?: No Do you have trouble with day-to-day activities such as bathing, preparing meals, shopping, managing finances, etc.?: No Are you currently unemployed and looking for a job?: No Are you interested in more education?: No Currently or been in a relationship where the following occur: no concerns reported THRIVE Score: 0 AUDIT C Alcohol Use Questionnaire (AUDIT-C) 1. How often do you have a drink containing alcohol?: Never 3. How often do you have six or more drinks on one occasion?: Never Total Score: 0 SHAQUILLE-7 AMB Questionnaire SHAQUILLE-7 Date SHAQUILLE - 7 assessed: 09/12/23 Feeling nervous, anxious, or on edge: 0 = Not at all Not being able to stop or control worryin = Not at all Worrying too much about different things: 0 = Not at all Trouble relaxin = Not at all Being so restless that it is hard to sit still: 0 = Not at all Becoming easily annoyed or irritable: 0 = Not at all Feeling afraid as if something awful might happen: 0 = Not at all Total SHAQUILLE-7 score (0-4 normal; 5-9 mild; 10-14 moderate; 15-21 severe): 0 Source: Developed by Drs. Armando Jama, Valeri Solitario, Mando Wallace and colleagues, with an educational tiffany from [employer]. Review of Systems Const Denies poor appetite and Denies weakness Eyes Denies no additional complaints ENT Reports Normal hearing present, Denies dizziness, Denies nasal congestion, Denies tinnitus and Denies sore throat Card Denies chest pain, Denies syncope, Denies rapid heart rate and Denies dyspnea Resp Denies cough and Denies dyspnea GI Denies change in stool character, Reports constipation, Denies diarrhea, Denies nausea and Denies vomiting Denies dysuria and Denies urinary frequency Neuro Reports Normal hearing present, Denies confusion, Denies dizziness, Denies syncope and Denies weakness Psych Denies confusion Physical exam (Primary Care) Vital Signs: Last Vital Signs Pulse 93 09/12/23 10:11 BP 132/72 09/12/23 10:11 Pulse Ox 98 09/12/23 10:11 Oxygen Delivery Method Room Air 09/12/23 10:11 BMI result Body Mass Index 28.4 Tobacco/Smoking Status: Tobacco use Status Tobacco use date assessed 09/12/23 09/12/23 10:13 Patient Tobacco Use Status Former Tobacco user 09/12/23 10:36 Tobacco use type Cigarette 09/12/23 10:36 e-Cigarette/Vaping Use Never Used 09/12/23 10:36 PHQ-9: PHQ-9 Score PHQ-9: Total score 0 09/12/23 10:34 Depression Screening Interpretation: Negative Thrive Assessment: Date of Thrive Assessment Date Thrive assessed 09/12/23 09/12/23 10:13 Currently or been in a relationship where the following occur: no concerns reported Const General: alert and awake; No confusion Orientation/consciousness: No confusion HENMT Other: L ear impacted cerumen, R TM intact Head: Yes normocephalic Ears: external ears normal Face and sinus: Yes normal facial exam Mouth: moist mucous membranes Throat: Yes tonsils normal Eyes Conjunctivae: conjunctivae normal Pupils: Equal, round and reactive pupils present and Pupil accommodation reflex normal Direct Ophthalmoscopy: normal light reflex Neck Neck: No lymphadenopathy Thyroid: Thyroid normal Chest Chest palpation & inspection: normal inspection of the chest Resp Effort & Inspection: normal respiratory effort and no audible wheezes Auscultation: clear to auscultation bilaterally, no crackles, no wheezes and lung sounds not diminished Cardio Rate: regular rate Rhythm: regular rhythm Peripheral pulses: radial pulses present and dorsalis pedis present GI Other: no prostate guiac negative Palpation (GI): no masses Auscultation: normal bowel sounds and normoactive bowel sounds Male General Exam: Yes normal external exam Skin General skin exam: no rashes or lesions noted Rashes: no rashes Neuro General: deep tendon reflexes 2+ bilaterally and No confusion Cranial nerves: Yes Equal, round and reactive pupils present, Yes Midline tongue present, Yes Normal hearing present and Yes Ability to bilaterally elevate shoulders present Cognition (Neuro): normal cognition Gait exam (Neuro): Normal gait present Motor exam (neuro): 5/5 motor strength present throughout Deep tendon reflexes (DTR's): Right brachioradialis reflex intensity grade: 2+, Left brachioradialis reflex intensity grade: 2+, Right patellar reflex intensity grade: 2+ and Left patellar reflex intensity grade: 2+ Extrem General: No edema Immunizations pneumoc 20-stewart conj-dip cr(PF) 0.5 mL IM syringe Performing Provider: Seamus Gibbons MD Performing Location[place] [facility] [place] [facility] Administered by: Roxy Chi CMA on 09/12/23 10:53 Dose Route Admin Location Dispensed Lot Number Expiration Date NDC [employer] 0.5 mL IM Left Deltoid 0.5 mL [id number] 08/07/24 [employer] VIS Given Date VIS Provided VIS Publication Date 09/12/23 Single Vaccine 21 Eligibility Eligibility Date Funding Source Not [facility] Eligible 09/12/23 Private Assessment and Plan Assessment & Plan (1) Annual physical exam: Code(s): Z00.00 - Encounter for general adult medical examination without abnormal findings Plan: Patient is advised to eat healthy, keep well hydrated, keep active and have adequate sleep. (2) Overweight (BMI 25.0-29.9): Code(s): E66.3 - Overweight Plan: Diet and exercise (3) Vitamin B12 deficiency: Code(s): E53.8 - Deficiency of other specified B group vitamins Plan: Discussed about vitamin B12 (4) Impaired glucose tolerance: Code(s): R73.02 - Impaired glucose tolerance (oral) Plan: Decrease the amount of carbohydrate intake, pasta, bread, rice and potatoes are all sugar and that is aside from all the sweet stuff, remember that fruits are good but they are Sweet also. (5) Bladder cancer: Comment: Cystectomy and prostatectomy Sis January 2017 chemotherapy at [facility] 12/2016 Code(s): C67.9 - Malignant neoplasm of bladder, unspecified Qualifiers: Bladder location: unspecified site Qualified Code(s): C67.9 - Malignant neoplasm of bladder, unspecified Plan: has been released by urology since no prostate and bladder (6) Hyperlipidemia: Code(s): E78.5 - Hyperlipidemia, unspecified Qualifiers: Hyperlipidemia type: pure hypercholesterolemia Qualified Code(s): E78.00 - Pure hypercholesterolemia, unspecified Plan: Avoid fried foods, chicken skin, eggs, butter margarine, pastries and meat. Be it pork or beef they have a lot of cholesterol patient discontinued medication. refill done and blood work in 3 months (7) ALLEN (nonalcoholic steatohepatitis): Code(s): K75.81 - Nonalcoholic steatohepatitis (ALLEN) Plan: Low-fat diet and exercise (8) GERD (gastroesophageal reflux disease): Code(s): K21.9 - Gastro-esophageal reflux disease without esophagitis Qualifiers: Esophagitis presence: without esophagitis Qualified Code(s): K21.9 - Gastro-esophageal reflux disease without esophagitis Plan: Avoid the foods that causes that usually spicy foods, tomato products, juices, coffee, soda and foods that your sensitive to. After eating do not lie down, allow 3-4 hours before in lie down. And keep the head of bed above 30 degrees to avoid the acid from going up. (9) High serum ferritin: Code(s): R79.89 - Other specified abnormal findings of blood chemistry Plan: concer on high ferritin and bloodwork advised and if high hematology referral Orders: Orders Ferritin 3 Months R79.89 - Other specified abnormal findings of blood chemistry Pneumococcal 20 Immunization Today Z23 - Encounter for immunization Liver Panel 3 Months E78.00 - Pure hypercholesterolemia, unspecified, R79.89 - Other specified abnormal findings of blood chemistry Comprehensive Met. Panel 3 Months E78.00 - Pure hypercholesterolemia, unspecified Medications: New pneumoc 20-stewart conj-dip cr(PF) 0.5 mL IM ONCE 0.5 mL 0RF Z23 - Encounter for immunization Refilled atorvastatin 20 mg PO DAILY 90 tabs 2RF Coding Level of Care Code Est Pt Prev Care >65y(64564) Diagnoses Annual physical exam Z00.00 Overweight (BMI 25.0-29.9) E66.3 Vitamin B12 deficiency E53.8 Impaired glucose tolerance R73.02 Malignant neoplasm of urinary bladder, unspecified site C67.9 Bladder location: unspecified site Pure hypercholesterolemia E78.00 Hyperlipidemia type: pure hypercholesterolemia ALLEN (nonalcoholic steatohepatitis) K75.81 Gastroesophageal reflux disease without esophagitis K21.9 Esophagitis presence: without esophagitis High serum ferritin R79.89
== END 2023-09-12 11:01 | disposition home or self-care (01) ==
PROVIDERS: PCP Internal Medicine; Visit Provider Internal Medicine
DX: Z23 Encounter for immunization (principal)
CPT/HCPCS: 90471; 90677; 99214; 99397

== ENCOUNTER 2023-12-13 11:22 | Outpatient (REF) | payer MEDICARE, SELFPAY ==
[2023-12-13 12:58] LABS: Alanine Aminotransferase 42 U/L (0-40); Albumin Level 4.6 g/dL (3.5-5.0); Alkaline Phosphatase 90 U/L (39-117); Anion Gap 13 (12-20); Aspartate Amino Transferase 27 U/L (5-37); Bilirubin Direct 0.2 mg/dL (0.0-0.5); Bilirubin Total 0.4 mg/dL (0.0-1.0); Blood Urea Nitrogen 20 mg/dL (9-16); Calcium 9.7 mg/dL (8.4-10.2); Carbon Dioxide 23 mmol/L (22-29); Chloride 110 mmol/L (96-108); Estimated Glomerular Filt Rate > 60; Glucose Random 109 mg/dL (60-115); Potassium 4.6 mmol/L (3.3-5.1); Sodium 141 mmol/L (135-145); Total Protein 7.5 g/dL (6.5-8.0)
[2023-12-13 13:13] LABS: Ferritin 583 ng/mL (20-250)
== END 2023-12-13 11:23 | disposition home or self-care (01) ==
LOC: HO.LAB 11:22
PROVIDERS: PCP Internal Medicine; Visit Provider Internal Medicine
DX: R79.89 Other specified abnormal findings of blood chemistry (principal); E78.00 Pure hypercholesterolemia, unspecified
CPT/HCPCS: 36415; 80053; 82248; 82728

== ENCOUNTER 2024-01-24 10:31 | Outpatient (AMB) | payer MEDICARE, SELFPAY ==
[2024-01-24 10:36] VITALS: BP 140/82; PULSE 96; O2SAT 95; BMI 29.0
--- NOTE | 2024-01-24 10:36 | A.OFFPC_ITS ---
Vital Signs 01/24/24 10:36 Height 5 ft 10 in Weight 202 lb 0.4 oz BMI 29.0 BP 140/82 H Blood Pressure Location Lt brachial Position Sitting Pulse 96 Pulse Source Pulse Oximeter Pulse Oximetry (%) 95 Oxygen Delivery Method Room Air Intake Visit Reasons: cholesterol Database Security Administrator Required: No Allergies No Known Allergies [No Known Allergies*] Allergy (Verified 01/24/24 10:36) Tobacco use date assessed: 09/12/23 Fall risk assessment: No Falls in past year Last assessed Fall Risk: 01/24/24 Dental Screening Dental Screen Date: 09/12/23 HPI cholesterol HPI Details 63-year-old overweight male with a histo ry of impaired glucose tolerance bladder cancer hypercholesterolemia , hepatic steatosis GERD coming in for follow-up. Last seen in September 11 having an elevated serum ferritin patient is referred to Hematology. Patient's colonoscopy 05/29/2019. [facility] Medical History (Updated 01/24/24 @ 18:48 by Seamus Gibbons MD) Left against medical advice Pulmonary nodule Impaired glucose tolerance Obesity (BMI 30-39.9) Bladder cancer Hyperlipidemia PHIPPS (nonalcoholic steatohepatitis) GERD (gastroesophageal reflux disease) Surgical History H/O total cystectomy History of cystoscopy History of shoulder surgery Family History (Updated 09/06/22 @ 09:14 by Roxy Chi CMA) Father Diabetes Lung cancer CAD (coronary artery disease) Mother Lung cancer CVA (cerebral vascular accident) Brother Esophageal cancer Social History (Updated 09/12/23 @ 10:36 by Seamus Gibbons MD) Housing: House Alcohol intake: never Comment: (09/2023- 32 years now) Patient Tobacco Use Status: Former Tobacco user Tobacco use type: Cigarette Years Smoked: 30 years ago(02/2020) e-Cigarette/Vaping Use: Never Used Second Hand Smoke Exposure: No Current occupational status: retired Cognitive needs: No Hearing needs: No Vision needs: Yes Questionnaire Thrive Questionnaire Date Thrive assessed: 09/12/23 AUDIT C Alcohol Use Questionnaire (AUDIT-C) 1. How often do you have a drink containing alcohol?: Never 3. How often do you have six or more drinks on one occasion?: Never Total Score: 0 SHAQUILLE-7 AMB Questionnaire SHAQUILLE-7 Date SHAQUILLE - 7 assessed: 09/12/23 Source: Developed by Drs. Armando Jama, Valeri Solitario, Mando Wallace and colleagues, with an educational tiffany from [employer]. Physical exam (Primary Care) Vital Signs: Last Vital Signs Pulse 96 01/24/24 10:36 BP 140/82 H 01/24/24 10:36 Pulse Ox 95 01/24/24 10:36 Oxygen Delivery Method Room Air 01/24/24 10:36 BMI result Body Mass Index 29.0 Tobacco/Smoking Status: Tobacco use Status Tobacco use date assessed 09/12/23 01/24/24 10:37 Patient Tobacco Use Status Former Tobacco user 01/24/24 10:37 Tobacco use type Cigarette 01/24/24 10:37 e-Cigarette/Vaping Use Never Used 01/24/24 10:37 Thrive Assessment: Date of Thrive Assessment Date Thrive assessed 09/12/23 01/24/24 10:37 Const General: alert; No acute distress Eyes Conjunctivae: conjunctivae normal Resp Auscultation: clear to auscultation bilaterally Cardio Rate: regular rate Rhythm: regular rhythm GI Inspection: Yes normal to inspection Extrem General: Yes normal to inspection and No edema Office Procedures Flu Questionnaire Does the patient have a severe egg allergy?: No Does the patient have severe life threatening allergies?: No Does the patient have a fever or illness today?: No Has the patient ever had Guillain-[place] Syndrome?: No Has the patient ever had any past reaction to a flu shot?: No Immunizations Fluarix Triv [id number] (PF) 45 mcg (15 mcg x 3)/0.5 mL IM syringe Performing Provider: Seamus Gibbons MD [facility] Administered by: ANNAMARIE Mccoy on 01/24/24 11:33 Dose Route Admin Location Dispensed Lot Number Expiration Date [facility] Air Conditioning Installer 0.5 mL IM Left Deltoid 0.5 mL [id number] 10/06/24 79531-746-29 [employer] VIS Given Date VIS Provided VIS Publication Date 01/24/24 Single Vaccine 20 Eligibility Eligibility Date Funding Source Not [facility] Eligible 01/24/24 Private Coding Level of Care Code Est Pt Level 4 (37668) Diagnoses High serum ferritin R79.89 Blood pressure elevated without history of HTN R03.0 Overweight (BMI 25.0-29.9) E66.3 Impaired glucose tolerance R73.02 Malignant neoplasm of urinary bladder, unspecified site C67.9 Bladder location: unspecified site Pure hypercholesterolemia E78.00 Hyperlipidemia type: pure hypercholesterolemia PHIPPS (nonalcoholic steatohepatitis) K75.81 Primary hypertension I10 Hypertension type: primary hypertension Assessment & Plan Assessment & Plan (1) High serum ferritin: Code(s): R79.89 - Other specified abnormal findings of blood chemistry Category: Medical Plan: Repeat testing shows numbers going down (2) Blood pressure elevated without history of HTN: Code(s): R03.0 - Elevated blood-pressure reading, without diagnosis of hypertension Category: Medical Plan: Continue to monitor blood pressure (3) Overweight (BMI 25.0-29.9): Code(s): E66.3 - Overweight Category: Medical Plan: Diet and exercise (4) Impaired glucose tolerance: Code(s): R73.02 - Impaired glucose tolerance (oral) Category: Medical Plan: Decrease the amount of carbohydrate intake, pasta, bread, rice and potatoes are all sugar and that is aside from all the sweet stuff, remember that fruits are good but they are Sweet also. (5) Bladder cancer: Comment: Cystectomy and prostatectomy Sis January 2017 chemotherapy at [facility] 12/2016 Code(s): C67.9 - Malignant neoplasm of bladder, unspecified Category: Medical Qualifiers: Bladder location: unspecified site Qualified Code(s): C67.9 - Malignant neoplasm of bladder, unspecified Plan: Continue to follow-up with oncology. (6) Hyperlipidemia: Code(s): E78.5 - Hyperlipidemia, unspecified Category: Medical Qualifiers: Hyperlipidemia type: pure hypercholesterolemia Qualified Code(s): E78.00 - Pure hypercholesterolemia, unspecified Plan: Avoid fried foods, chicken skin, eggs, butter margarine, pastries and meat. Be it pork or beef they have a lot of cholesterol LDL goal of less than 130 and triglyceride of less than 150. Patient on atorvastatin 20 mg once a day (7) PHIPPS (nonalcoholic steatohepatitis): Code(s): K75.81 - Nonalcoholic steatohepatitis (PHIPPS) Category: Medical Plan: Low-fat diet and exercise (8) Hypertension: Code(s): I10 - Essential (primary) hypertension Category: Medical Qualifiers: Hypertension type: primary hypertension Qualified Code(s): I10 - Essential (primary) hypertension Plan: Patient has agreed to be started on blood pressure medication Orders: Orders Comprehensive Met. Panel 3 Months E78.00 - Pure hypercholesterolemia, unspecified Free T4 (Free Thyroxine) 3 Months E78.00 - Pure hypercholesterolemia, unspecified Prostate Specific Antigen Scr 3 Months E78.00 - Pure hypercholesterolemia, unspecified Hemoglobin A1c 3 Months R73.02 - Impaired glucose tolerance (oral) Ferritin 3 Months D64.9 - Anemia, unspecified IRON PROFILE 3 Months D64.9 - Anemia, unspecified Influenza 6552-1912 Immunization Today Z23 - Encounter for immunization Complete Blood Count Auto Diff 3 Months E78.00 - Pure hypercholesterolemia, unspecified Lipid Panel 3 Months E78.00 - Pure hypercholesterolemia, unspecified Thyroid Stimulating Hormone 3 Months E78.00 - Pure hypercholesterolemia, unspecified Vitamin B12 and Folate 3 Months E78.00 - Pure hypercholesterolemia, unspecified Reticulocyte Count 3 Months D64.9 - Anemia, unspecified Medications: New hydrochlorothiazide 12.5 mg PO DAILY 30 tabs 3RF I10 - Essential (primary) hypertension
== END 2024-01-24 11:34 | disposition home or self-care (01) ==
PROVIDERS: PCP Internal Medicine; Visit Provider Internal Medicine
DX: R73.02 Impaired glucose tolerance (oral) (principal); C67.9 Malignant neoplasm of bladder, unspecified; E66.811 Obesity, class 1; Z68.29 Body mass index [BMI] 29.0-29.9, adult; R03.0 Elevated blood-pressure reading, without diagnosis of hypertension; E78.00 Pure hypercholesterolemia, unspecified; K75.81 Nonalcoholic steatohepatitis (NASH); I10 Essential (primary) hypertension

== ENCOUNTER → 2024-01-24 10:31 | Outpatient (BNVA) | payer MEDICARE, SELFPAY | PROVIDERS: PCP Internal Medicine; Visit Provider Internal Medicine | DX: R79.89 Other specified abnormal findings of blood chemistry (principal); R03.0 Elevated blood-pressure reading, without diagnosis of hypertension; E66.3 Overweight; R73.02 Impaired glucose tolerance (oral); C67.9 Malignant neoplasm of bladder, unspecified; E78.00 Pure hypercholesterolemia, unspecified; K75.81 Nonalcoholic steatohepatitis (NASH); I10 Essential (primary) hypertension; Z85.51 Personal history of malignant neoplasm of bladder; Z79.899 Other long term (current) drug therapy; Z23 Encounter for immunization | CPT/HCPCS: 90471; 90656; 99212 ==

== ENCOUNTER 2024-05-01 14:36 | Outpatient (AMB) | payer MEDICARE, SELFPAY ==
--- NOTE | 2024-05-01 14:43 | MHC.PC.OV ---
Vital Signs 05/01/24 14:50 Height 5 ft 10 in Weight 203 lb 6 oz BMI 29.2 BP 140/90 H Blood Pressure Location Lt brachial Position Sitting Pulse 94 Pulse Source Pulse Oximeter Temp 97.9 F Temp Source Temporal Artery Scan Pulse Oximetry (%) 94 Oxygen Delivery Method Room Air Intake Visit Reasons: 3 month f/u Allergies No Known Allergies [No Known Allergies*] Allergy (Verified 01/24/24 10:36) Tobacco use date assessed: 09/12/23 Dental Screening Dental Screen Date: 09/12/23 HPI 3 month f/u HPI Details The patient is a 64-year-old male presenting with concerns related to hypertension and results from recent blood work. Historically, the patient has been diagnosed with hypertension, currently managed with hydrochlorothiazide. The patient has intermittently monitored blood pressure at home, with recent lapses due to travel, resulting in occasional elevated readings of approximately 140/90 mmHg. Dyslipidemia has been previously identified, with current treatment including atorvastatin, which has successfully reduced LDL levels to 135 mg/dL from 169 mg/dL last year, although it remains slightly elevated. The patient also reported a recent increase in dietary intake of red meat, particularly during a cruise, leading to elevated iron levels. Gastroesophageal reflux is managed with omeprazole. The patient has a known history of fatty liver disease and expresses enjoyment of a diet high in fatty meats despite lifestyle and dietary recommendations. Recent laboratory findings indicate a fasting glucose of 100 mg/dL and a hemoglobin A1c of 5.7%, revealing a borderline risk for diabetes. Additionally, vitamin B12 was found to be low, necessitating supplementation, though specific supplementation through non-meat sources was recommended. The patient leads an active lifestyle, frequently traveling and expressing enjoyment of life through dietary choices, albeit with awareness of existing health behaviors and risks. [facility] Medical History (Updated 05/01/24 @ 15:20 by Seamus Gibbons MD) Blood pressure elevated without history of HTN Left against medical advice Pulmonary nodule Impaired glucose tolerance Obesity (BMI 30-39.9) Bladder cancer Hyperlipidemia PHIPPS (nonalcoholic steatohepatitis) GERD (gastroesophageal reflux disease) Surgical History H/O total cystectomy History of cystoscopy History of shoulder surgery Family History Father Diabetes Lung cancer CAD (coronary artery disease) Mother Lung cancer CVA (cerebral vascular accident) Brother Esophageal cancer Social History Housing: House Alcohol intake: never Comment: (09/2023- 32 years now) Patient Tobacco Use Status: Former Tobacco user Tobacco use type: Cigarette Years Smoked: 30 years ago(02/2020) e-Cigarette/Vaping Use: Never Used Second Hand Smoke Exposure: No Current occupational status: retired Cognitive needs: No Hearing needs: No Vision needs: Yes Questionnaire PHQ-9 Over the last 2 weeks, how often have you been bothered by any of the following problems? 1. Little interest or pleasure in doing things: not at all 2. Feeling down, depressed, or hopeless: not at all 3. Trouble falling or staying asleep, or sleeping too much: not at all 4. Feeling tired or having little energy: not at all 5. Poor appetite or overeating: not at all 6. Feeling bad about yourself - or that you are a failure or have let yourself or your family down: not at all 7. Trouble concentrating on things, such as reading the newspaper or watching television: not at all 8. Moving or speaking so slowly that other people could have noticed. Or the opposite - being so fidgety or restless that you have been moving around a lot more than usual: not at all 9. Thoughts that you would be better off or of hurting yourself in some way: not at all Total score: 0 Depression Screening Interpretation: Negative Depression Screening Done: Yes 89295 - PHQ-9 Billing: Yes Source: Developed by Drs. Armando Jama, Valeri Solitario, Mando Wallace and colleagues, with an educational tiffany from [employer]. Thrive Questionnaire Date Thrive assessed: 05/01/24 I am a: Patient What is your living situation today?: I have a steady place to live Within the past 12 months, did the food you bought not last and you didn't have the money to get more?: Never true Within the past 12 months, did you worry whether your food would run out before you got money to buy more?: Never true Do you have trouble paying for medicines?: No Do you have trouble getting transportation to medical appointments?: No Do you have trouble paying your heating and electricity bill?: No Do you have trouble taking care of your child, family member or friend?: No Do you have trouble with day-to-day activities such as bathing, preparing meals, shopping, managing finances, etc.?: No Are you currently unemployed and looking for a job?: No Are you interested in more education?: No Please select the resources that you would like help with: None Currently or been in a relationship where the following occur: No concerns reported THRIVE Score: 0 AUDIT C Alcohol Use Questionnaire (AUDIT-C) 1. How often do you have a drink containing alcohol?: Never 3. How often do you have six or more drinks on one occasion?: Never Total Score: 0 SHAQUILLE-7 AMB Questionnaire SHAQUILLE-7 Date SHAQUILLE - 7 assessed: 05/01/24 Feeling nervous, anxious, or on edge: 0 = Not at all Not being able to stop or control worryin = Not at all Worrying too much about different things: 0 = Not at all Trouble relaxin = Not at all Being so restless that it is hard to sit still: 0 = Not at all Becoming easily annoyed or irritable: 0 = Not at all Feeling afraid as if something awful might happen: 0 = Not at all Total SHAQUILLE-7 score (0-4 normal; 5-9 mild; 10-14 moderate; 15-21 severe): 0 Source: Developed by Drs. Armando Jama, Valeri Solitario, Mando Wallace and colleagues, with an educational tiffany from [employer]. SHAQUILLE-7 Assessment Billing SHAQUILLE-7 Assessment Tool: SHAQUILLE-7 Assessment 41785 Physical exam (Primary Care) Vital Signs: Last Vital Signs Temp 97.9 F 05/01/24 14:50 Pulse 94 05/01/24 14:50 BP 140/90 H 05/01/24 14:50 Pulse Ox 94 05/01/24 14:50 Oxygen Delivery Method Room Air 05/01/24 14:50 BMI result Body Mass Index 29.2 Tobacco/Smoking Status: Tobacco use Status Tobacco use date assessed 09/12/23 05/01/24 14:43 Patient Tobacco Use Status Former Tobacco user 05/01/24 14:43 Tobacco use type Cigarette 05/01/24 14:43 e-Cigarette/Vaping Use Never Used 05/01/24 14:43 PHQ-9: PHQ-9 Score PHQ-9: Total score 0 05/01/24 15:23 Depression Screening Interpretation: Negative Thrive Assessment: Date of Thrive Assessment Date Thrive assessed 05/01/24 05/01/24 14:55 Currently or been in a relationship where the following occur: No concerns reported Const General: alert; No acute distress Eyes Conjunctivae: conjunctivae normal Resp Auscultation: clear to auscultation bilaterally Cardio Rate: regular rate Rhythm: regular rhythm GI Inspection: Yes normal to inspection Extrem General: Yes normal to inspection and No edema Coding Level of Care Code Est Pt Level 4 (58596) Complex EM visit Add On G2211 Diagnoses Primary hypertension I10 Hypertension type: primary hypertension High serum ferritin R79.89 Vitamin B12 deficiency E53.8 Impaired glucose tolerance R73.02 Pure hypercholesterolemia E78.00 Hyperlipidemia type: pure hypercholesterolemia PHIPPS (nonalcoholic steatohepatitis) K75.81 Gastroesophageal reflux disease without esophagitis K21.9 Esophagitis presence: without esophagitis Additional Codes SHAQUILLE-7 Assessment Billing - SHAQUILLE-7 Assessment Tool: SHAQUILLE-7 Assessment 10356 ([id number]) PHQ-9 - 88968 - PHQ-9 Billing: Yes ([id number]) Assessment & Plan Assessment & Plan (1) Hypertension: Code(s): I10 - Essential (primary) hypertension Category: Medical Qualifiers: Hypertension type: primary hypertension Qualified Code(s): I10 - Essential (primary) hypertension (2) High serum ferritin: Code(s): R79.89 - Other specified abnormal findings of blood chemistry Category: Medical (3) Vitamin B12 deficiency: Code(s): E53.8 - Deficiency of other specified B group vitamins Category: Medical (4) Impaired glucose tolerance: Code(s): R73.02 - Impaired glucose tolerance (oral) Category: Medical (5) Hyperlipidemia: Code(s): E78.5 - Hyperlipidemia, unspecified Category: Medical Qualifiers: Hyperlipidemia type: pure hypercholesterolemia Qualified Code(s): E78.00 - Pure hypercholesterolemia, unspecified (6) PHIPPS (nonalcoholic steatohepatitis): Code(s): K75.81 - Nonalcoholic steatohepatitis (PHIPPS) Category: Medical (7) GERD (gastroesophageal reflux disease): Code(s): K21.9 - Gastro-esophageal reflux disease without esophagitis Category: Medical Qualifiers: Esophagitis presence: without esophagitis Qualified Code(s): K21.9 - Gastro-esophageal reflux disease without esophagitis Plan - Continue hydrochlorothiazide for hypertension management, encourage regular home blood pressure monitoring, and reduce high red meat intake to manage elevated iron levels and support liver health. - Continue atorvastatin for dyslipidemia management while maintaining a balanced diet to further reduce LDL levels. - Maintain omeprazole for gastroesophageal reflux management, ensuring dietary modifications to avoid exacerbation. - Recommend dietary modifications to reduce iron intake and re-evaluate iron levels with future laboratory testing. - Begin vitamin supplementation from non-meat sources to address deficiency. - Discuss dietary and lifestyle modifications to manage fatty liver disease, such as increased intake of vegetables and plant-based proteins. - Monitor blood sugar levels and maintain lifestyle interventions to prevent progression to diabetes, given family history and current A1c levels. - Educate patient on long-term health impacts of current dietary choices and encourage moderation to mitigate risk factors associated with known health conditions. Orders: Orders Hemoglobin A1c 4 Weeks R79.89 - Other specified abnormal findings of blood chemistry IRON PROFILE 4 Weeks R79.89 - Other specified abnormal findings of blood chemistry Reticulocyte Count 4 Weeks R79.89 - Other specified abnormal findings of blood chemistry Vitamin B12 and Folate 4 Weeks R79.89 - Other specified abnormal findings of blood chemistry Ferritin 1 Month R79.89 - Other specified abnormal findings of blood chemistry CA echo transthoracic complete 4 Weeks I35.0 - Nonrheumatic aortic (valve) stenosis Comprehensive Met. Panel Today I10 - Essential (primary) hypertension Medications: New lisinopril-hydrochlorothiazide 10-12.5 mg 1 tab PO DAILY 30 tabs 3RF I10 - Essential (primary) hypertension Discontinued hydrochlorothiazide Discontinued Reason: Doctor's Order 12.5 mg PO DAILY 30 tabs 3RF I10 - Essential (primary) hypertension
[2024-05-01 14:50] VITALS: BP 140/90; PULSE 94; TEMP 36.6; O2SAT 94; BMI 29.2
== END 2024-05-01 15:37 | disposition home or self-care (01) ==
PROVIDERS: PCP Internal Medicine; Visit Provider Internal Medicine
DX: I10 Essential (primary) hypertension (principal); R79.89 Other specified abnormal findings of blood chemistry; E53.8 Deficiency of other specified B group vitamins; R73.02 Impaired glucose tolerance (oral); E78.00 Pure hypercholesterolemia, unspecified; K75.81 Nonalcoholic steatohepatitis (NASH); K21.9 Gastro-esophageal reflux disease without esophagitis

== ENCOUNTER → 2024-05-01 14:36 | Outpatient (BNVA) | payer MEDICARE, SELFPAY | PROVIDERS: PCP Internal Medicine; Visit Provider Internal Medicine | DX: I10 Essential (primary) hypertension (principal); R79.89 Other specified abnormal findings of blood chemistry; E53.8 Deficiency of other specified B group vitamins; E78.00 Pure hypercholesterolemia, unspecified; R73.02 Impaired glucose tolerance (oral); K21.9 Gastro-esophageal reflux disease without esophagitis; K75.81 Nonalcoholic steatohepatitis (NASH) | CPT/HCPCS: 96127; 99212 ==

== ENCOUNTER → 2024-05-29 13:51 | Outpatient (REF) | payer MEDICARE, SELFPAY ==
--- NOTE | 2024-05-29 13:54 | CA_ITS ---
Transthoracic Echocardiogram Patient (Last, First, Middle): Josh Herron J Gender: Male Date of : 1960 Age: 64 Procedure Date: 05/29/2024 Procedure Type: Transthoracic Echocardiogram Location: OP Height: 175. cm Weight: 92.08 kg BSA: 2.08 m2 Heart Rate: 96 bpm BP: 105 / 65 mmHg Doctor Chiropractic: MICHAEL Referring MD: Seamus Gibbons MD Symptoms: I35.0 - Nonrheumatic aortic (valve) stenosis Study Quality: Fair ECG Rhythm: Sinus Conclusions: - The left ventricular systolic function is normal. The visually estimated ejection fraction is between 65-70%. - There is moderate septal asymmetric hypertrophy. - There is moderate calcification of the aortic valve. There is mild aortic valve stenosis. - There is mild mitral annular calcification. - There is mild dilatation of the aortic arch measuring 4.10 cm. Findings Left Ventricle Normal left ventricular cavity size. There is mildly increased left ventricular wall thickness. The left ventricular systolic function is normal. The visually estimated ejection fraction is between 65-70%. Evidence suggests grade I (mild) diastolic dysfunction. There is moderate septal asymmetric hypertrophy. Right Ventricle Normal right ventricular cavity size and systolic function. Atria Both atria are normal in size. Aortic Valve There is moderate calcification of the aortic valve. There is mild aortic valve stenosis. There is no aortic valve regurgitation. Mitral Valve There is mild mitral annular calcification. There is trace mitral valve regurgitation. There is no mitral valve stenosis. Pulmonic Valve The pulmonic valve is likely normal. Tricuspid Valve There is trace tricuspid valve regurgitation. There is no evidence of pulmonary hypertension. Great Vessels The asc aorta is normal in size. There is mild dilatation of the aortic arch measuring 4.10 cm. Venous The inferior vena cava is normal in size and collapses greater than 50% with inspiration. Pericardium/Pleural There is a trivial pericardial effusion. Prior Study Comparison Changes noted compared to prior study dated: 06/30/2021. see comment on aortic arch size. Measurements 2D Linear Measurements IVSd: 1.41 0.6-0.9/0.6-1.0 cm LVIDd: 3.66 3.9-5.3/4.2-5.9 cm LVIDd Index: 1.76 2.4-3.2/2.2-3.1 cm/m2 LVIDs: 2.32 2.0-3.6 cm LVPWd: 1.11 0.7-1.1 cm LA Diam: 3.90 2.7-3.8/3.0-4.0 cm LAIDs Index: 1.88 1.5-2.3 cm/m2 LV Mass: 194.48 67-162/88-224 g LV Mass Index: 93.50 43-95/49-115 g/m2 LVOT Diam: 2.10 3.0+(-)1.3 cm 2D Systolic Function EF 4C: 60.70 >55% EF 2C: 62.20 >55% EF BiP: 61.70 >55% Mitral Valve MV Pk E: 0.63 MV PK A: 1.11 MV Decel Time: 240.00 E/A: 0.60 E'Lateral: 6.09 E'Medial: 3.48 E/E' Med: 18.10 E/E' Lat: 10.30 PHT: 70.00 MVA PHT: 3.14 Decel Cataño: 2.63 Aortic Valve AoV Pk Chip: 2.31 AoV Mn Chip: 1.74 AoV VTI: 0.33 AoV Pk Grad: 21.00 Aov Mn Grad: 13.00 GRAYSON Cont.VTI: 1.81 LVOT LVOT Pk Chip: 1.13 LVOT Mn Chip: 0.76 LVOT VTI: 0.17 LVOT Pk Grad: 5.00 LVOT Mn Grad: 3.00 LVOT Diam: 2.10 LVOT Area: 3.46 Diastolic Function MV Pk E: 0.63 MV Pk A: 1.11 E/A: 0.60 E'Medial: 3.48 E/E' Med: 18.10 E' Laterial: 6.09 E/E' Lat: 10.30 Right Ventricle TAPSE (mm): 14.30 TVS' Chip: 12.70 Tricuspid Valve RA Press: 3.00 Great Vessels Aorta Sinus of Valsalva: 4.00 2.0-3.5 cm Ao Asc: 3.60 2.1-3.4 cm Ao Arch: 4.10 Pulmonary Valve PV Pk Chip: 1.10 Peak PV Grad: 5.00 Updated in Other Vendor System with Status of Final Óscar Brewster MD electronically signed on 05/30/2024 11:44:15 AM with status of Final
== END ==
LOC: HO.CARD 13:51
PROVIDERS: PCP Internal Medicine; Visit Provider Internal Medicine
DX: I35.0 Nonrheumatic aortic (valve) stenosis (principal)
CPT/HCPCS: 93306

== ENCOUNTER → 2024-05-29 13:54 | Outpatient (BNV) | payer MEDICARE, SELFPAY | PROVIDERS: PCP Internal Medicine; Visit Provider Internal Medicine | DX: I42.2 Other hypertrophic cardiomyopathy (principal); I35.0 Nonrheumatic aortic (valve) stenosis; I34.81 Nonrheumatic mitral (valve) annulus calcification | CPT/HCPCS: 93306 ==